=== PATIENT | male | born 1970 | race Caucasian/White ===

== ENCOUNTER 2018-07-07 06:25 | Emergency (ER) | payer SELFPAY ==
[2018-07-07 06:31] VITALS: BP 181/114
--- NOTE | 2018-07-07 07:17 | ER Document Report ---
ED General - General Chief Complaint: Ear Pain Stated Complaint: EAR INFECTION,COUGH,BODY PAIN Time Seen by Provider: 07/07/18 06:50 TRAVEL OUTSIDE OF THE [place] IN LAST 30 DAYS: No - HPI Notes: Patient is a 47-year-old male that presents to the emergency department for chief complaint of left ear pain. Patient reports sinus congestion with cough for the last 4 days. He states he has had progressive increased pain in his left ear. He describes it as a pressure and fullness. He states today he felt like there was some fluid on his left ear. He denies any fevers or chills. He does report some associated nausea but denies any abdominal pain or diarrhea. He has not taken any rnko-nma-emuekug medication for his symptoms. Past Medical History: Hypertension Past Surgical History: Negative Social History: Daily tobacco, occasional alcohol, denies drug use Family History: Reviewed and noncontributory for presenting illness Allergies: Reviewed, see documented allergy list. REVIEW OF SYSTEMS: CONSTITUTIONAL : No fever No chills No diaphoresis No recent illness EENT: No vision changes congestion No sore throat Left ear pain CARDIOVASCULAR: No chest pain No palpitations RESPIRATORY: No shortness of breath cough No difficulty breathing GASTROINTESTINAL: No abdominal pain nausea No vomiting No diarrhea GENITOURINARY: No dysuria No hematuria No difficulty urinating MUSCULOSKELETAL: No back pain No leg pain No arm pain SKIN: No rashes No lesions LYMPHATIC: No swollen, enlarged glands. NEUROLOGICAL: No lightheadedness No headache No weakness No paresthesias PSYCHIATRIC: No anxiety No depression PHYSICAL EXAMINATION: Vital signs reviewed, nursing noted reviewed. GENERAL: Well-appearing, well-nourished and in no acute distress. HEAD: Atraumatic, normocephalic. EYES: Eyes appear normal, extraocular movements intact, sclera anicteric, conjunctiva are normal. ENT: Cerumen impaction with dry hard cerumen in left ear, TM obscured on left. Normal right external auditory canal, right middle ear effusion, normal- appearing right TM. Bilateral nasal mucosal edema, no sinus tenderness to percussion, nares patent, oropharynx clear without exudates. Moist mucous membranes. NECK: Normal range of motion, supple without lymphadenopathy LUNGS: Breath sounds clear to auscultation bilaterally and equal. No wheezes rales or rhonchi. HEART: Regular rate and rhythm without murmurs ABDOMEN: Soft, nontender, normoactive bowel sounds. No rebound, guarding, or rigidity. No masses appreciated. EXTREMITIES: Nontender, good range of motion, no pitting or edema. NEUROLOGICAL: No focal neurological deficits. Moves all extremities spontaneously Motor and sensory grossly intact on exam. PSYCH: Normal mood, normal affect. SKIN: Warm, Dry, normal turgor, no rashes or lesions noted on exposed skin - Related Data Allergies/Adverse Reactions: No Known Allergies Allergy (Verified 07/10/15 12:03) Past Medical History - Social History Smoking Status: Unknown if Ever Smoked Family History: Reviewed & Not Pertinent Patient has suicidal ideation: No Patient has homicidal ideation: No - Past Medical History Cardiac Medical History: Reports: Hx Hypercholesterolemia, Hx Hypertension Neurological Medical History: Denies: Hx Seizures Renal/ Medical History: Reports: Hx Renal Insufficiency. Denies: Hx Peritoneal Dialysis GI Medical History: Reports: Hx Gastroesophageal Reflux Disease Past Surgical History: Reports: Hx Abdominal Surgery - hernia, Hx Orthopedic Surgery - lumbar - Immunizations Hx Diphtheria, Pertussis, Tetanus Vaccination: No Physical Exam - Vital signs Vitals: Temp Pulse Resp BP Pulse Ox 97.8 F 101 H 18 181/114 H 99 07/07/18 06:30 07/07/18 06:30 07/07/18 06:30 07/07/18 06:30 07/07/18 06:30 Course - Re-evaluation Re-evalutation: 07/07/18 07:17 Vitals reviewed. Nursing notes reviewed. Patient is well-appearing and nontoxic. He does have significantly elevated blood pressure and has been noncompliant with home medications. I did corporate counsel him on following up with primary care to recheck his blood pressure and likely get started back on blood pressure medications. He is asymptomatic from his hypertension currently and further workup is not indicated. Patient was advised to avoid any [id number] decongestants which may elevate his blood pressure. His right ear has hard cerumen and is tender on exam, he was advised to begin using Debrox to soften the cerumen and was referred to ENT for follow-up if he is unable to clear the impaction. Patient also likely has bilateral eustachian tube dysfunction because of his sinus congestion. He was started on Nasonex and Claritin for further symptomatic management. Patient did report nausea but has not had any vomiting or abdominal pain. He will be given Zofran for symptom medic management. His nausea is likely related to copious postnasal drip. He is in agreement with plan of care and follow-up instructions. He will return for new or worsening symptoms. He is stable at discharge. - Vital Signs Vital signs: Temp Pulse Resp BP Pulse Ox 97.8 F 101 H 18 181/114 H 99 07/07/18 06:30 07/07/18 06:30 07/07/18 06:30 07/07/18 06:30 07/07/18 06:30 Discharge - Discharge Clinical Impression: Left ear impacted cerumen, Sinus congestion Eustachian tube dysfunction Qualifiers: Laterality: bilateral Qualified Code(s): H69.83 - Other specified disorders of Eustachian tube, bilateral Condition: Stable Disposition: HOME, SELF-CARE Instructions: Family Physicians / Practices, Upper Respiratory Illness ([facility]) Additional Instructions: Please return to the emergency department if you have any worsening, or concern of your symptoms. Please return to the emergency department if you develop chest pain, difficulty breathing, severe abdominal pain, or ongoing vomiting. Please follow-up with your primary care physician in 2-3 days and any other recommended physicians. If prescribed, take all medications as directed. If you have any questions or concerns do not hesitate to return the emergency department for evaluation. Use Debrox [id number] as directed on the label in your left ear for earwax softening Prescriptions: Loratadine [Claritin 10 mg Tablet] 10 mg PO DAILY #30 tablet Mometasone Furoate [Nasonex] 1 spray NS Q12 #1 spray.pump Ondansetron HCl [Zofran 4 mg Tablet] 1 tab PO Q4H PRN #10 tablet PRN Reason: Forms: Elevated Blood Pressure Referrals: SHAHNAZ AYALA MD [ACTIVE STAFF] - Follow up in 1 week [facility] [Provider Group] - Follow up as needed
== END 2018-07-07 07:25 | disposition home or self-care (01) ==
LOC: ER 06:25
DX: H69.83 Other specified disorders of Eustachian tube, bilateral (principal); H61.22 Impacted cerumen, left ear; R09.81 Nasal congestion; E78.00 Pure hypercholesterolemia, unspecified; I10 Essential (primary) hypertension
CPT/HCPCS: 99282

== ENCOUNTER 2018-08-09 08:56 | Observation (INO) | payer SELFPAY ==
[2018-08-09] MEDS ORDERED: ONDANSETRON HCL INJ/PF 4 MG/2 ML SDV IV ONE (09:17)
[2018-08-09] MEDS ORDERED: NORMAL SALINE 1000 ML 1,000 ML IV ONE (09:19)
--- NOTE | 2018-08-09 09:27 | RADIOLOGY REPORT (SQ) ---
EXAM DESCRIPTION: CHEST SINGLE VIEW COMPLETED DATE/TIME: 08/09/2018 9:15 am REASON FOR STUDY: stroke alert numbness COMPARISON: None. EXAM PARAMETERS: NUMBER OF VIEWS: One view. TECHNIQUE: Single frontal radiographic view of the chest acquired. RADIATION DOSE: NA LIMITATIONS: None. FINDINGS: LUNGS AND PLEURA: No opacities, masses or pneumothorax. No pleural effusion. MEDIASTINUM AND HILAR STRUCTURES: No masses. Contour normal. HEART AND VASCULAR STRUCTURES: Heart normal in size. Normal vasculature. BONES: No acute findings. HARDWARE: None in the chest. OTHER: No other significant finding. IMPRESSION: NO ACUTE RADIOGRAPHIC FINDING IN THE CHEST. TECHNICAL DOCUMENTATION: JOB ID: [id number] [employer]- All Rights Reserved Reading location - IP/workstation name: [email or web address]
--- NOTE | 2018-08-09 09:27 | RADIOLOGY REPORT (SQ) ---
EXAM DESCRIPTION: CT HEAD WITHOUT COMPLETED DATE/TIME: 08/09/2018 9:14 am REASON FOR STUDY: stroke alert numbness COMPARISON: None. TECHNIQUE: Axial images acquired through the brain without intravenous contrast. Images reviewed wi th bone, brain and subdural windows. Additional sagittal and coronal reconstructions were generated. Images stored on PACS. All CT scanners at this facility use dose modulation, iterative reconstruction, and/or weight based d osing when appropriate to reduce radiation dose to as low as reasonably achievable (ALARA). [facility]: Dose Right [facility]: CareDose [facility]: Dose Right [facility]: Teradose 4D [facility]: Smart Technologies RADIATION DOSE: CT Rad equipment meets quality standard of care and radiation dose reduction techniq ues were employed. CTDIvol: 53.2 mGy. DLP: 991 mGy-cm. mGy. LIMITATIONS: None. FINDINGS: VENTRICLES: Normal size and contour. CEREBRUM: No masses. No hemorrhage. No midline shift. No evidence for acute infarction. Normal gra y/white matter differentiation. No areas of low density in the white matter. CEREBELLUM: No masses. No hemorrhage. No alteration of density. No evidence for acute infarction. EXTRAAXIAL SPACES: No fluid collections. No masses. ORBITS AND GLOBE: No intra- or extraconal masses. Normal contour of globe without masses. CALVARIUM: No fracture. PARANASAL SINUSES: No fluid levels. SOFT TISSUES: No mass or hematoma. OTHER: No other significant finding. IMPRESSION: NORMAL BRAIN CT WITHOUT CONTRAST. EVIDENCE OF ACUTE STROKE: NO. COMMENT: Pertinent positive or negative findings of the imaging study reported as a CRITICAL EXAM t o Dr Starr at09:20 on 08/09/2018. Category of Critical Exam: Stroke alert. Quality ID # [id number]: Final reports with documentation of one or more dose reduction techniques (e.g., Au tomated exposure control, adjustment of the mA and/or kV according to patient size, use of iterative reconstruction technique) TECHNICAL DOCUMENTATION: JOB ID: [id number] [employer]- All Rights Reserved Reading location - IP/workstation name: [email or web address]
[2018-08-09 09:49] LABS: INTERNATIONAL RATION (INR) 0.87; PARTIAL THROMBOPLASTIN TIME 28.7 SEC (23.5-35.8); PROTHROMBIN TIME 12.3 SEC (11.4-15.4)
[2018-08-09 09:50] LABS: ABSOLUTE LYMPHOCYTES (AUTO) 2.5 10^3/uL (0.5-4.7); ABSOLUTE MONOCYTES (AUTO) 0.8 10^3/uL (0.1-1.4); ABSOLUTE NEUT (AUTO) 7.1 10^3/uL (1.7-8.2); BASOPHILS % (AUTO) 0.4 % (0-2); EOSINOPHILS % (AUTO) 0.2 % (0-6); HEMATOCRIT 44.6 % (37.9-51.0); HEMOGLOBIN 15.6 g/dL (13.5-17.0); LYMPHOCYTES % (AUTO) 23.8 % (13-45); MEAN CORPUSCULAR HEMOGLOBIN 33.4 pg (27.0-33.4); MEAN CORPUSCULAR HGB CONC 34.9 g/dL (32.0-36.0); MEAN CORPUSCULAR VOLUME 96 fl (80-97); MONOCYTES % (AUTO) 7.4 % (3-13); PLATELET COUNT 288 10^3/uL (150-450); RED BLOOD COUNT 4.66 10^6/uL (4.35-5.55); RED CELL DISTRIBUTION WIDTH 13.8 % (11.5-14.0); SEGMENTED NEUTROPHILS % (AUTO) 68.2 % (42-78); TOTAL CELLS COUNTED % (AUTO) 100 %; WHITE BLOOD COUNT 10.4 10^3/uL (4.0-10.5)
[2018-08-09 10:02] LABS: ALANINE AMINOTRANSFERASE 19 U/L (21-72); ALKALINE PHOSPHATASE 119 U/L (38-126); ANION GAP 18 (5-19); ASPARTATE AMINO TRANSFERASE 43 U/L (17-59); BILIRUBIN,DIRECT 0.4 mg/dL (0.0-0.4); BILIRUBIN,TOTAL 1.4 mg/dL (0.2-1.3); BLOOD UREA NITROGEN 15 mg/dL (7-20); CALCIUM 9.5 mg/dL (8.4-10.2); CARBON DIOXIDE 37 mmol/L (22-30); CHLORIDE 86 mmol/L (98-107); CREATINE KINASE 462 U/L (55-170); GLUCOSE 131 mg/dL (75-110); SODIUM 141.3 mmol/L (137-145); TOTAL PROTEIN 8.5 g/dL (6.3-8.2)
[2018-08-09 10:05] LABS: A TYPE INFLUENZA AG NEGATIVE (NEGATIVE); B INFLUENZA AG NEGATIVE (NEGATIVE)
[2018-08-09 10:12] LABS: POTASSIUM 2.8 mmol/L (3.6-5.0)
[2018-08-09 10:13] LABS: CREATINE KINASE MB 1.06 ng/mL (<4.55)
[2018-08-09 10:14] LABS: TROPONIN I 0.038 ng/mL
[2018-08-09] MEDS ORDERED: POTASSI CL 40 MEQ/NS 1L 1,000 ML IV ONE (10:26)
[2018-08-09] MEDS ORDERED: MAGNESIUM SULFATE PF/INJ 40 MEQ/10 ML SDV IV ONE (10:29)
--- NOTE | 2018-08-09 11:20 | ER Document Report ---
ED General - General Chief Complaint: Numbness Stated Complaint: NAUSEA/VOMITING/ARM AND HAND TINGLING Time Seen by Provider: 08/09/18 09:17 TRAVEL OUTSIDE OF THE [place] IN LAST 30 DAYS: No - HPI Notes: Patient presents emergency department for evaluation. He presented because of tingling and weakness in his bilateral hands and arms. He states this started intermittently over the last 36 hours but became worse and constant today. He states he has had nausea and vomiting over the last week. He has had some low- grade fevers and malaise as well. He has had a minimal cough. He denies any diarrhea. No abnormal travel, recent antibiotics. No recent head injuries. He states that he has had some intermittent blurred vision that seems to be associated with the paresthesias in his hands. Of note he does not follow with a family doctor. - Related Data Allergies/Adverse Reactions: No Known Allergies Allergy (Verified 08/09/18 09:35) Past Medical History - General Information source: Patient - Social History Smoking Status: Current Every Day Smoker Frequency of alcohol use: Occasional Family History: Reviewed & Not Pertinent Patient has suicidal ideation: No Patient has homicidal ideation: No - Past Medical History Cardiac Medical History: Reports: Hx Hypercholesterolemia, Hx Hypertension Neurological Medical History: Denies: Hx Seizures Renal/ Medical History: Reports: Hx Renal Insufficiency. Denies: Hx Peritoneal Dialysis GI Medical History: Reports: Hx Gastroesophageal Reflux Disease Past Surgical History: Reports: Hx Abdominal Surgery - hernia, Hx Orthopedic Surgery - lumbar - Immunizations Hx Diphtheria, Pertussis, Tetanus Vaccination: No Review of Systems - Review of Systems Constitutional: Malaise, Weakness EENT: No symptoms reported Cardiovascular: No symptoms reported Respiratory: Cough Gastrointestinal: Nausea, Vomiting Musculoskeletal: No symptoms reported Skin: No symptoms reported Neurological/Psychological: See HPI, Weakness Physical Exam - Vital signs Vitals: Pulse Resp BP Pulse Ox 109 H 20 132/94 H 95 08/09/18 09:03 08/09/18 09:03 08/09/18 09:03 08/09/18 09:03 Interpretation: Hypertensive, Tachycardic - Notes Notes: Very anxious in appearance, cooperative examiner, mild distress. Head is normocephalic and atraumatic. Pupils are equal, round, reactive to light. Oral mucosa is moist. Heart is regular rate and rhythm, lungs are clear to auscultation bilaterally. Abdomen soft, nontender, normoactive bowel sounds. Patient is awake, alert, oriented x3. Cranial nerves II through XII are grossly intact without focal neurological deficits. Strength is plus 5 out of 5 bilateral upper and lower extremities. Sensation intact, reflexes symmetrical. Intact finger nose finger, rapid alternating movements, heel to patel. Patient with very fine tremor that appears to be Course - Re-evaluation Re-evalutation: 08/09/18 11:18 Patient presents emergency department for evaluation. He initially came as a stroke alert. His findings are more consistent with hyperventilation and electrolyte abnormalities. Laboratory evaluations did indeed reveal hypoma gnesemia, hypokalemia. He continued to be nauseated despite medications. Electrolytes replaced via IV. He was maintained on the monitor. We will admit the patient for further care. - Vital Signs Vital signs: Temp Pulse Resp BP Pulse Ox 98.8 F 109 H 21 H 132/94 H 95 08/09/18 09:23 08/09/18 09:03 08/09/18 09:23 08/09/18 09:23 08/09/18 09:23 - Laboratory Result Diagrams: 08/09/18 09:25 08/09/18 09:25 Laboratory results interpreted by me: 08/09/18 08/09/18 09:16 09:25 Potassium 2.8 L* Chloride 86 L Carbon Dioxide 37 H Glucose 131 H POC Glucose 139 H Magnesium 1.3 L Total Bilirubin 1.4 H ALT 19 L Creatine Kinase 462 H Total Protein 8.5 H - Diagnostic Test Radiology reviewed: Reports reviewed - CT head negative. Chest x-ray negative. - EKG Interpretation by Me Additional EKG results interpreted by me: 08/09/18 11:19 Sinus tachycardia with a rate of 108 bpm. Normal axis and intervals. No acute ST changes concerning for ischemia or infarction. Discharge - Discharge Clinical Impression: Hypokalemia, Hypomagnesemia, Paresthesias, Nausea and vomiting Condition: Stable Disposition: ADMITTED OBSERVATION Admitting Provider: Hospitalist - [facility] Admitted: Telemetry
[2018-08-09] MEDS: MAGNESIUM SULFATE/D5W 1 GM/100 ML RTUPB IV SCH ×2 (11:36→12:46)
[2018-08-09] MEDS ORDERED: ACETAMINOPHEN 325 MG TABLET PO PRN (12:14)
[2018-08-09] MEDS ORDERED: ONDANSETRON HCL INJ/PF 4 MG/2 ML SDV IV PRN (12:14)
[2018-08-09] MEDS ORDERED: ENOXAPARIN SODIUM INJ 40 MG/0.4 ML DISP.SYRIN SUBCUT ONE (12:45)
--- NOTE | 2018-08-09 12:47 | PDOC H&P ---
History of Present Illness Admission Date/PCP: 08/09/18 11:28 History of Present Illness: BONI LINTON JR is a 47 year old male patient with past medical history of hypertension, hyperlipidemia, psoriatic arthritis and tobacco dependence presents with chief complaints of bilateral tingling sensation and right-sided weakness. Patient also endorses nausea vomiting. This morning also he feels as if he is going to pass out. He denies chills, fever, palpitation or diaphoresis. He endorses dizziness but no headache, double vision or any seizure activity. He CT scan of the head is negative for acute intracranial process. His blood work shows marked hypokalemia with potassium of 2.6. Past Medical History Cardiac Medical History: Reports: Hyperlipidema, Hypertension Neurological Medical History: Denies: Seizures GI Medical History: Reports: Gastroesophageal Reflux Disease Past Surgical History Past Surgical History: Reports: Orthopedic Surgery - lumbar Social History Smoking Status: Current Every Day Smoker Frequency of Alcohol Use: None Hx Recreational Drug Use: Yes Drugs: Marijuana - Advance Directive Resuscitation Status: Full Code Family History Family History: Reviewed & Not Pertinent, CVA, Hypertension Parental Family History Reviewed: Yes Children Family History Reviewed: Yes Sibling(s) Family History Reviewed.: Yes Medication/Allergy Allergies/Adverse Reactions: No Known Allergies Allergy (Verified 08/09/18 09:35) Review of Systems Constitutional: PRESENT: as per HPI Eyes: PRESENT: as per HPI Ears: PRESENT: as per HPI Breasts: PRESENT: as per HPI Cardiovascular: PRESENT: as per HPI Respiratory: PRESENT: as per HPI Gastrointestinal: PRESENT: as per HPI Psychiatric: PRESENT: as per HPI Physical Exam Vital Signs: Temp Pulse Resp BP Pulse Ox 98.8 F 109 H 21 H 132/94 H 95 08/09/18 09:23 08/09/18 09:03 08/09/18 09:23 08/09/18 09:23 08/09/18 09:23 Intake & Output 08/08/18 08/09/18 08/10/18 06:59 06:59 06:59 Intake Total 1000 Balance 1000 Weight 89.2 kg General appearance: PRESENT: no acute distress Head exam: PRESENT: atraumatic, normocephalic Eye exam: PRESENT: conjunctiva pink Mouth exam: PRESENT: moist Neck exam: ABSENT: carotid bruit, JVD, lymphadenopathy, thyromegaly Respiratory exam: PRESENT: clear to auscultation rocío. ABSENT: rales, rhonchi, wheezes Cardiovascular exam: PRESENT: RRR. ABSENT: diastolic murmur, rubs, systolic murmur GI/Abdominal exam: PRESENT: normal bowel sounds, soft. ABSENT: distended, guarding, mass, organolmegaly, rebound, tenderness Neurological exam: PRESENT: alert, awake, oriented to time, oriented to situation Results Laboratory Results: 08/09/18 09:25 08/09/18 09:25 08/09/18 08/09/18 09:25 09:25 WBC 10.4 RBC 4.66 Hgb 15.6 Hct 44.6 MCV 96 MCH 33.4 MCHC 34.9 RDW 13.8 Plt Count 288 Seg Neutrophils % 68.2 Lymphocytes % 23.8 Monocytes % 7.4 Eosinophils % 0.2 Basophils % 0.4 Absolute Neutrophils 7.1 Absolute Lymphocytes 2.5 Absolute Monocytes 0.8 Absolute Eosinophils 0.0 Absolute Basophils 0.0 Sodium 141.3 Potassium 2.8 L* Chloride 86 L Carbon Dioxide 37 H Anion Gap 18 BUN 15 Creatinine 1.13 Est GFR ( Amer) > 60 Est GFR (Non-Af Amer) > 60 Glucose 131 H Calcium 9.5 Magnesium 1.3 L Total Bilirubin 1.4 H AST 43 ALT 19 L Alkaline Phosphatase 119 Total Protein 8.5 H Albumin 5.0 08/09/18 08/09/18 09:25 09:25 Creatine Kinase 462 H CK-MB (CK-2) 1.06 Troponin I 0.038 Impressions: Chest X-Ray 08/09/18 09:03 IMPRESSION: NO ACUTE RADIOGRAPHIC FINDING IN THE CHEST. Head CT 08/09/18 09:03 IMPRESSION: NORMAL BRAIN CT WITHOUT CONTRAST. EVIDENCE OF ACUTE STROKE: NO. Assessment & Plan - Diagnosis (1) TIA (transient ischemic attack) Is this a current diagnosis for this admission?: Yes Plan: Since patient has risk factors for CVA will admit him for observation. Bilateral carotid Doppler and MRI in the morning (2) Hypokalemia Is this a current diagnosis for this admission?: Yes Plan: We will replete and check his BMP in a.m. (3) Hypertension Qualifiers: Hypertension type: essential hypertension Qualified Code(s): I10 - Essential (primary) hypertension Is this a current diagnosis for this admission?: Yes Plan: Patient reports this is not taking any medication for his blood pressure due to financial issues. Patient has been started on lisinopril and Norvasc. (4) Hyperlipidemia Qualifiers: Hyperlipidemia type: unspecified Qualified Code(s): E78.5 - Hyperlipidemia, unspecified Is this a current diagnosis for this admission?: Yes Plan: Started on Lipitor 20 mg p.o. nightly. (5) Tobacco dependence Is this a current diagnosis for this admission?: Yes Plan: Patient counseled and encouraged to quit smoking and he voiced agreement.
--- NOTE | 2018-08-09 15:15 | RADIOLOGY REPORT (SQ) ---
EXAM DESCRIPTION: CAROTID DOPPLER COMPLETED DATE/TIME: 08/09/2018 2:49 pm REASON FOR STUDY: Rule out CVA COMPARISON: None. TECHNIQUE: Grayscale ultrasound, Doppler velocity and spectra, and color Doppler images acquired of the extra-cranial carotid and vertebral arteries. Images stored on PACS. LIMITATIONS: None. FINDINGS: RIGHT CAROTID CCA Velocities: Within normal limits. ICA Velocities Peak systolic 0.47 m/s. End diastolic 0.24 m/s. Proximal ICA/CCA peak systolic ratio 1.2. Mild plaque in the bulb and proximal ICA. LEFT CAROTID CCA Velocities: Within normal limits. ICA Velocities Peak systolic 1.1 m/s. End diastolic 0.40 m/s. Proximal ICA/CCA peak systolic ratio 0.9. Mild plaque in the bulb and proximal ICA. VERTEBRAL ARTERIES: Antegrade flow. Normal waveforms. SUBCLAVIAN ARTERIES: Not imaged. OTHER: No other significant finding. IMPRESSION: NO HEMODYNAMICALLY SIGNIFICANT STENOSIS. COMMENT: Quality ID #[id number]: Velocity criteria are extrapolated from the diameter data as defined by t he Society of Radiologists in Ultrasound Consensus Conference. Radiology 2003: 229; 340-346. TECHNICAL DOCUMENTATION: JOB ID: [id number] [employer]- All Rights Reserved Reading location - IP/workstation name: [email or web address]
--- NOTE | 2018-08-09 15:52 | EKG REPORT ---
SEVERITY:- ABNORMAL ECG - SINUS TACHYCARDIA WITH PVC CONSIDER LEFT VENTRICULAR HYPERTROPHY BORDERLINE T ABNORMALITIES, INFERIOR LEADS BORDERLINE PROLONGED QT INTERVAL : Confirmed by: Fred Whalen MD 09-Aug-2018 15:51:42
[2018-08-09] MEDS: OXYCODONE-ACETAMINOPHEN 5-325 MG TABLET PO PRN ×2 (16:52→21:12)
--- NOTE | 2018-08-09 18:50 | RADIOLOGY REPORT (SQ) ---
EXAM DESCRIPTION: MRI HEAD WITHOUT COMPLETED DATE/TIME: 08/09/2018 5:32 pm REASON FOR STUDY: TIA/CVA COMPARISON: None. TECHNIQUE: Multiplanar imaging includes non-contrasted T1, T2, FLAIR, and diffusion with ADC map seq uences. Images stored on PACS. LIMITATIONS: None. FINDINGS: ANATOMY: No anomalies. Normal vascular flow voids. Pituitary fossa normal. CSF SPACES: Normal in size and contour. No hemorrhage. CEREBRUM: Sulci and gyri normal in size and contour. Normal white matter signal on FLAIR imaging. No evidence of hemorrhage, mass, or extraaxial fluid collection. POSTERIOR FOSSA: No signal alteration. No hemorrhage. No edema, masses or mass effect. Internal viola tory canals, cerebello-pontine angles, mastoids normal. DIFFUSION IMAGING: Negative for acute or sub-acute infarction. ORBITS: No masses. Globes normal. PARANASAL SINUSES: No fluid levels. Small left maxillary sinus mucous retention cyst. . OTHER: No other significant finding. IMPRESSION: Negative for acute or sub-acute infarction. Age-appropriate exam. EVIDENCE OF ACUTE STROKE: NO. TECHNICAL DOCUMENTATION: JOB ID: [id number] [employer]- All Rights Reserved Reading location - IP/workstation name: [email or web address]
[2018-08-09] MEDS: FAMOTIDINE 20 MG TABLET PO SCH (21:12)
[2018-08-09] MEDS ORDERED: ATORVASTATIN CALCIUM 20 MG TABLET PO SCH (22:00)
[2018-08-09] MEDS ORDERED: LABETALOL HCL INJ 20 MG/4 ML DISP.SYRIN IV PRN (22:18)
[2018-08-10] MEDS ORDERED: LABETALOL HCL INJ 20 MG/4 ML DISP.SYRIN IV ONE (00:02)
[2018-08-10] MEDS: OXYCODONE-ACETAMINOPHEN 5-325 MG TABLET PO PRN ×3 (03:13→12:37)
[2018-08-10 07:12] LABS: ABSOLUTE EOSINOPHILS # (AUTO) 0.1 10^3/uL (0.0-0.6); ABSOLUTE LYMPHOCYTES (AUTO) 2.7 10^3/uL (0.5-4.7); ABSOLUTE MONOCYTES (AUTO) 0.7 10^3/uL (0.1-1.4); ABSOLUTE NEUT (AUTO) 4.1 10^3/uL (1.7-8.2); BASOPHILS % (AUTO) 0.4 % (0-2); EOSINOPHILS % (AUTO) 1.6 % (0-6); HEMATOCRIT 34.1 % (37.9-51.0); LYMPHOCYTES % (AUTO) 35.3 % (13-45); MEAN CORPUSCULAR HEMOGLOBIN 33.6 pg (27.0-33.4); MEAN CORPUSCULAR HGB CONC 34.8 g/dL (32.0-36.0); MEAN CORPUSCULAR VOLUME 97 fl (80-97); MONOCYTES % (AUTO) 8.6 % (3-13); PLATELET COUNT 190 10^3/uL (150-450); RED BLOOD COUNT 3.53 10^6/uL (4.35-5.55); RED CELL DISTRIBUTION WIDTH 13.7 % (11.5-14.0); SEGMENTED NEUTROPHILS % (AUTO) 54.1 % (42-78); TOTAL CELLS COUNTED % (AUTO) 100 %; WHITE BLOOD COUNT 7.6 10^3/uL (4.0-10.5)
[2018-08-10 07:24] LABS: HEMOGLOBIN 11.9 g/dL (13.5-17.0)
[2018-08-10 07:37] LABS: ANION GAP 10 (5-19); BLOOD UREA NITROGEN 14 mg/dL (7-20); CALCIUM 8.8 mg/dL (8.4-10.2); CARBON DIOXIDE 33 mmol/L (22-30); CHLORIDE 96 mmol/L (98-107); CHOLESTEROL 152.31 mg/dL (0-200); GLUCOSE 104 mg/dL (75-110); POTASSIUM 3.3 mmol/L (3.6-5.0); SODIUM 139.1 mmol/L (137-145); TRIGLYCERIDES 135 mg/dL (<150)
[2018-08-10 07:48] LABS: DIRECT LDL 95 mg/dL (<100)
[2018-08-10] MEDS: FAMOTIDINE 20 MG TABLET PO SCH (09:13)
[2018-08-10] MEDS ORDERED: ENOXAPARIN SODIUM INJ 40 MG/0.4 ML DISP.SYRIN SUBCUT SCH (10:00)
[2018-08-10] MEDS ORDERED: LISINOPRIL 10 MG TABLET PO SCH (10:00)
--- NOTE | 2018-08-10 12:44 | PDOC DISCHARGE SUMMARY ---
General - Admit/Disc Date/PCP Admission Date/Primary Care Provider: 08/09/18 11:28 Discharge Date: 08/10/18 - Discharge Diagnosis (1) TIA (transient ischemic attack) Is this a current diagnosis for this admission?: Yes (2) Hypokalemia Is this a current diagnosis for this admission?: Yes (3) Hypertension Is this a current diagnosis for this admission?: Yes (4) Hyperlipidemia Is this a current diagnosis for this admission?: Yes (5) Tobacco dependence Is this a current diagnosis for this admission?: Yes - Additional Information Resuscitation Status: Full Code Home Medications: No Home Medications 08/09/18 History of Present Illness History of Present Illness: BONI LINTON JR is a 47 year old male patient with past medical history of hypertension, hyperlipidemia, psoriatic arthritis and tobacco dependence presents with chief complaints of bilateral tingling sensation and right-sided weakness. Patient also endorses nausea vomiting. This morning also he feels as if he is going to pass out. He denies chills, fever, palpitation or diaphoresis. He endorses dizziness but no headache, double vision or any seizure activity. He CT scan of the head is negative for acute intracranial process. His blood work shows marked hypokalemia with potassium of 2.6. Hospital Course Hospital Course: This is 47 years old male patient with past medical history of hypertension, hyperlipidemia, tobacco dependence and psoriatic arthritis presents with chief complaint of bilateral upper and lower extremity tingling sensation and weakness. He also complains of nausea and vomiting. With impression of rule out acute ischemic stroke patient undergone CT head, MRI of the brain and carotid Doppler and all of the tests turn negative. Patient remained symptom-free. His blood pressure is uncontrolled. I will discharge him home with metoprolol, lisinopril and Norvasc. Patient counseled and encouraged to quit smoking and he voices agreement. Physical Exam Vital Signs: Temp Pulse Resp BP Pulse Ox 98.0 F 71 16 143/84 H 99 08/10/18 11:27 08/10/18 11:27 08/10/18 11:27 08/10/18 11:27 08/10/18 11:27 Intake & Output 08/09/18 08/10/18 08/11/18 06:59 06:59 06:59 Intake Total 2770 Balance 2770 Weight 92.2 kg Results Laboratory Results: 08/10/18 06:22 08/10/18 06:22 08/10/18 08/10/18 06:22 06:22 WBC 7.6 RBC 3.53 L Hgb 11.9 L D Hct 34.1 L MCV 97 MCH 33.6 H MCHC 34.8 RDW 13.7 Plt Count 190 Seg Neutrophils % 54.1 Lymphocytes % 35.3 Monocytes % 8.6 Eosinophils % 1.6 Basophils % 0.4 Absolute Neutrophils 4.1 Absolute Lymphocytes 2.7 Absolute Monocytes 0.7 Absolute Eosinophils 0.1 Absolute Basophils 0.0 Sodium 139.1 Potassium 3.3 L Chloride 96 L Carbon Dioxide 33 H Anion Gap 10 BUN 14 Creatinine 1.04 Est GFR ( Amer) > 60 Est GFR (Non-Af Amer) > 60 Glucose 104 Calcium 8.8 Triglycerides 135 Cholesterol 152.31 LDL Cholesterol Direct 95 VLDL Cholesterol 27.0 HDL Cholesterol 44 08/09/18 08/09/18 09:25 09:25 Creatine Kinase 462 H CK-MB (CK-2) 1.06 Troponin I 0.038 Impressions: Carotid Doppler Study 08/09/18 00:00 IMPRESSION: NO HEMODYNAMICALLY SIGNIFICANT STENOSIS. Head MRI 08/09/18 00:00 IMPRESSION: Negative for acute or sub-acute infarction. Age-appropriate exam. EVIDENCE OF ACUTE STROKE: NO. Chest X-Ray 08/09/18 09:03 IMPRESSION: NO ACUTE RADIOGRAPHIC FINDING IN THE CHEST. Head CT 08/09/18 09:03 IMPRESSION: NORMAL BRAIN CT WITHOUT CONTRAST. EVIDENCE OF ACUTE STROKE: NO. Qualifiers - * PATIENT BEING DISCHARGED WITH ANY OF THE FOLLOWING DIAGNOSIS: No
[2018-08-10] MEDS ORDERED: POTASSIUM CHLORIDE 10 MEQ CAPSULE.ER PO ONE (13:00)
[2018-08-10] MEDS ORDERED: METOPROLOL TARTRATE 50 MG TABLET PO ONE (13:00)
[2018-08-10] MEDS ORDERED: AMLODIPINE BESYLATE 10 MG TABLET PO ONE (13:00)
[2018-08-10] MEDS ORDERED: PROCHLORPERAZINE MALEATE 10 MG TABLET PO ONE (13:30)
[2018-08-10 14:39] VITALS: BP 142/72
== END 2018-08-10 15:12 | disposition home or self-care (01) ==
LOC: ER 08:56 → EH 11:28 → 3S 15:50
PROVIDERS: ADMIT Internal Medicine; ATTEND Internal Medicine
DX: G45.9 Transient cerebral ischemic attack, unspecified (principal); E87.6 Hypokalemia; I10 Essential (primary) hypertension; E78.5 Hyperlipidemia, unspecified; F17.200 Nicotine dependence, unspecified, uncomplicated; L40.50 Arthropathic psoriasis, unspecified; R11.2 Nausea with vomiting, unspecified; R50.9 Fever, unspecified; R05 Cough; R53.81 Other malaise; R00.0 Tachycardia, unspecified; E83.42 Hypomagnesemia; Z82.3 Family history of stroke; Z23 Encounter for immunization
CPT/HCPCS: 93005; 99285; 96372; 96361; 96375; 96365; 96366; 36415 ×2; 82553; 82962; 82550; 83735; 85025 ×2; 85610; 85730; 80048; 80053; 84484; 83036; 80061; 87804; 93880; 70551; 71045; 70450; 90686; 93010; J3490 ×3; J1650 ×2; J3475; S0183; J2405; J7030; J3480

== ENCOUNTER 2019-01-26 14:28 | Emergency (ER) | payer SELFPAY ==
--- NOTE | 2019-01-26 15:17 | ER Document Report ---
ED Medical Screen (RME) - General Chief Complaint: Dizziness Stated Complaint: WEAKNESS Time Seen by Provider: 01/26/19 15:06 Notes: HPI: Is a 48-year-old male here for a plethora of complaints to include feeling shaky and tremulous all over, dizzy, fatigue, nausea, hiccups, cough, saha, intermittent bilateral hand tingling for the last 6 days. He states he usually drinks alcohol often and has not had any EtOH in 6 days. He states the tremors have become worse. He denies any history of this before. He denies any history of DTs, alcohol withdrawal seizures, or alcohol detox in the past. He states that this happened one time before and he was in renal failure of unknown etiology. He is supposed to take lisinopril and 3 other blood pressure medications however he lost his job and has not filled these medications or been compliant secondary to monetary reasons. He states he aches all over as well. Denies any tick bites. No fall or trauma. No other changes in medication or diet. Denies any nintoxication or drug use. Denies any other complaints at this time. He has not sought care until now. ROS neg to include 10 systems, unless mentioned in the hpi. PE:>>>> PHYSICAL_EXAM: GENERAL_APPEARANCE: well_nourished, alert, cooperative, no_acute_distress, Moderate_obvious_discomfort. pleasant, obese middle aged white male, tremulous in his bilat upper and lower extremities. somewhat bizarre affect but pleasant., speaking in full sentences, in no sign of pain or resp distress, VITALS: reviewed, see vital signs table. HEAD: no_swelling\tenderness on the head. normocephalic. atraumatic. no santana signs. no raccoons eyes. EYES: PERRL, EOMI, conjunctiva_clear. NOSE: no_nasal_discharge. MOUTH: (-)decreased moisture. THROAT: no_tonsilar_inflammation, no_airway_obstruction. no_lymphadenopathy NECK: supple, no_neck_tenderness, full rom. full strength. BACK: no_back_tenderness. CHEST_WALL: no_chest_tenderness. no overlying skin changes LUNGS: no_wheezing, ctab (-)accessory muscle use, good air exchange bilateral. HEART: normal_rate, normal_rhythm, ABDOMEN: normal_BS, soft, no_abd_tenderness, (-)guarding, (-)rebound, no distension or peritoneal signs. no cva ttp EXTREMITIES: strength 5/5 in all_extremities, good pulses in all_extremities, no_swelling\tenderness in the extremities, no_edema. full rom. normal gait. good pulses. brisk cap refill. good hand senior technical analyst. NEURO: motor and sensation intact, SKIN: warm, dry, good_color, no_rash. MENTAL_STATUS: speech_clear, oriented_X_3, normal_affect, responds_appropriately to questions. MDM: I have ordered labs and initial work-up and patient will be transferred to the main ER for further work-up. I have greeted and performed a rapid initial assessment of this patient. A comprehensive ED assessment and evaluation of the patient, analysis of test results and completion of medical decision making process will be conducted by an additional ED providers. Documentation achieved through voice recording which my lead to some occasional accidental typographical errors. Extensive efforts have been made to proof read documentation to make sure these are the least as possible Temp Pulse Pulse Pulse Pulse Resp BP 01/26/19 16:44 98 100 92 01/26/19 15:23 160/123 H 01/26/19 15:22 01/26/19 14:36 97.4 F 117 H 20 153/138 H BP BP BP Pulse Ox 01/26/19 16:44 158/106 H 168/123 H 123/91 H 01/26/19 15:23 99 01/26/19 15:22 99 01/26/19 14:36 100 Category Date Time Status Continuous Cardiac Monitoring (ED) CONTINUOUS Care 01/26/19 15:15 Completed EKG Documentation STAT Care 01/26/19 15:15 Completed EKG Documentation STAT Care 01/26/19 15:16 Completed Orthostatic Vital Sign (ED) NOW Care 01/26/19 15:16 Completed CHEST 2 VIEWS [RAD] Stat Exams 01/26/19 15:15 Completed ALCOHOL [CHEM] Stat Lab 01/26/19 16:00 Completed CBC WITH DIFF [HEME] Stat Lab 01/26/19 16:00 Completed COMPREHENSIVE METABOLIC PANEL [CHEM] Stat Lab 01/26/19 16:00 Completed CREATINE KINASE MB [CHEM] Stat Lab 01/26/19 16:00 Completed CREATINE KINASE [CHEM] Stat Lab 01/26/19 16:00 Completed FREE T3 [CHEM] Stat Lab 01/26/19 16:00 Received LACTIC ACID SEPSIS [CHEM] Stat Lab 01/26/19 16:38 Completed LIPASE [CHEM] Stat Lab 01/26/19 16:00 Completed MAGNESIUM [CHEM] Stat Lab 01/26/19 16:00 Completed T4 [FREE T4 (FREE THYROXINE)] [CHEM] Stat Lab 01/26/19 16:00 Received THYROID STIMULATING HORMONE [CHEM] Stat Lab 01/26/19 16:00 Received TROPONIN I [CHEM] Stat Lab 01/26/19 16:00 Completed URINALYSIS [URIN] Stat Lab 01/26/19 15:15 Uncollected URINE DRUG SCREEN [CHEM] Stat Lab 01/26/19 15:15 Uncollected Lorazepam [Ativan Inj 2 mg/1 ml Vial] Med 01/26/19 16:22 Discontinued 1 mg IV NOW ONE EKG ER ONLY [ER] Stat Oth 01/26/19 Active TRAVEL OUTSIDE OF THE [place] IN LAST 30 DAYS: No - Related Data Allergies/Adverse Reactions: No Known Allergies Allergy (Verified 01/26/19 14:28) Past Medical History - Past Medical History Cardiac Medical History: Reports: Hx Hypercholesterolemia, Hx Hypertension Neurological Medical History: Denies: Hx Seizures Renal/ Medical History: Reports: Hx Renal Insufficiency. Denies: Hx Peritoneal Dialysis GI Medical History: Reports: Hx Gastroesophageal Reflux Disease Past Surgical History: Reports: Hx Abdominal Surgery - hernia, Hx Orthopedic Surgery - lumbar - Immunizations Hx Diphtheria, Pertussis, Tetanus Vaccination: No Physical Exam - Vital signs Vitals: Temp Pulse Resp BP Pulse Ox 97.4 F 117 H 20 153/138 H 100 01/26/19 14:36 01/26/19 14:36 01/26/19 14:36 01/26/19 14:36 01/26/19 14:36 Course - Vital Signs Vital signs: Temp Pulse Resp BP Pulse Ox 97.4 F 92 20 123/91 H 99 01/26/19 14:36 01/26/19 16:44 01/26/19 14:36 01/26/19 16:44 01/26/19 15:23 - Laboratory Result Diagrams: 01/26/19 16:00 01/26/19 16:00 Laboratory results interpreted by me: 01/26/19 01/26/19 01/26/19 16:00 16:00 16:00 RBC 3.75 L Hgb 12.7 L Hct 36.5 L MCH 33.9 H RDW 14.4 H Sodium 133.1 L Potassium 3.3 L Chloride 92 L BUN 24 H Creatinine 1.33 H Est GFR (Non-Af Amer) 57 L Glucose 120 H Calcium 10.4 H Magnesium 1.3 L
--- NOTE | 2019-01-26 16:16 | RADIOLOGY REPORT (SQ) ---
EXAM DESCRIPTION: CHEST 2 VIEWS COMPLETED DATE/TIME: 01/26/2019 4:04 pm REASON FOR STUDY: weakness COMPARISON: 08/09/2018. EXAM PARAMETERS: NUMBER OF VIEWS: two views TECHNIQUE: Digital Frontal and Lateral radiographic views of the chest acquired. RADIATION DOSE: NA LIMITATIONS: none FINDINGS: LUNGS AND PLEURA: No opacities, masses or pneumothorax. No pleural effusion. MEDIASTINUM AND HILAR STRUCTURES: No masses or contour abnormalities. HEART AND VASCULAR STRUCTURES: Heart normal size. No evidence for failure. BONES: No acute findings. HARDWARE: None in the chest. OTHER: No other significant finding. IMPRESSION: NO ACUTE RADIOGRAPHIC FINDING IN THE CHEST. TECHNICAL DOCUMENTATION: JOB ID: [id number] [employer]- All Rights Reserved Reading location - IP/workstation name: [email or web address]
[2019-01-26] MEDS ORDERED: LORAZEPAM INJ 2 MG/1 ML VIAL IV ONE (16:22)
--- NOTE | 2019-01-26 16:23 | ER Document Report ---
ED General - General Chief Complaint: Dizziness Stated Complaint: WEAKNESS Time Seen by Provider: 01/26/19 15:06 TRAVEL OUTSIDE OF THE [place] IN LAST 30 DAYS: No - HPI Notes: 40-year-old male presents with multiple complaints. Patient states beginning last Friday began to feel some occasional dizziness, sometimes related to position or standing up others not. On Friday he began to have nausea, vomited several times and began to have hiccups to cause some upper epigastric pain. Cramping, nonradiating. He overall just felt dizzy, weak and today developed some shaking tremor in his upper and lower extremities. He has not been eating or drinking very well. He is evasive about his alcohol use but ultimately admits that he drinks at least a sixpack a day, he stopped drinking on Friday when he began to feel dizzy. He denies any head injury, no headache, no unplanned weight loss. No new medications. Adamantly denies any illicit drug abuse. No history of any neurologic disease. No recent travel. No recent antibiotic use. No other modifying factors, no other associated symptoms, no other provocative or palliative factors. - Related Data Allergies/Adverse Reactions: No Known Allergies Allergy (Verified 01/26/19 14:28) Past Medical History - Social History Smoking Status: Current Every Day Smoker Frequency of alcohol use: Social Drug Abuse: Marijuana Family History: Reviewed & Not Pertinent, CVA, Hypertension Patient has suicidal ideation: No Patient has homicidal ideation: No - Past Medical History Cardiac Medical History: Reports: Hx Hypercholesterolemia, Hx Hypertension Neurological Medical History: Denies: Hx Seizures Renal/ Medical History: Reports: Hx Renal Insufficiency. Denies: Hx Peritoneal Dialysis GI Medical History: Reports: Hx Gastroesophageal Reflux Disease Past Surgical History: Reports: Hx Abdominal Surgery - hernia, Hx Orthopedic Surgery - lumbar - Immunizations Hx Diphtheria, Pertussis, Tetanus Vaccination: No Review of Systems - Review of Systems Notes: Review of systems as in the history of present illness, otherwise negative x 10 systems. Physical Exam - Vital signs Vitals: Pulse Resp BP Pulse Ox 98 14 171/101 H 98 01/26/19 14:30 01/26/19 14:30 01/26/19 14:30 01/26/19 14:30 - Notes Notes: General: Well developed, well nourished. HEENT: Normocephalic, atraumatic. PEERL. No conjunctival injection. Neck: Supple, no significant adenopathy. No meningismus. Chest: Clear bilaterally, good air entry. Abdomen: Soft, non-tender, nondistended. Back: Non-tender. Normal ROM Extremities: No cyanosis, clubbing or edema. Vascular: Symmetric peripheral pulses, normal capillary refill. Skin: No significant rash. No petechiae or purpura. Motor: Normal tone and power. Symmetric. Neurologic: Alert and oriented to person place and time. Cranial nerves II-12 are intact. Sensation intact and symmetric in the upper and lower extremities. No cerebellar findings including finger-nose testing. No clonus. Gait normal. Funduscopic exam shows crisp disc margins, no evidence of papilledema. Patient has diffuse shaking and trembling. No evidence of hyperreflexia, DTRs 1+ and symmetric in the upper and lower extremities. Tremor seems to kavitha slightly when he is asked to focus on certain activities Course - Re-evaluation Re-evalutation: 01/26/19 16:21 48-year-old male with the after mentioned symptoms, unclear etiology at this time. Broad differential diagnosis will be entertained include underlying endocrine, metabolic or infectious etiologies. Has a normal neurologic exam, no headache I think an intracranial structural ab normality is unlikely. Patient was evaluated by the [facility] provider prior to my evaluation. Studies / interventions have been ordered by this provider and may still be pending. Plan to follow labs and radiographic studies, will treat with Ativan and reassess. There is some suspicion this may be related to, in part, acute alcoho l withdrawal. 01/26/19 18:42 Labs reviewed. CBC grossly unremarkable. Chemistries unremarkable the exception of slightly depressed potassium, magnesium is depressed. Patient is given oral potassium repletion and IV magnesium. EKG is grossly unremarkable Chest x-ray unremarkable. Patient is responded exceptionally well to Ativan. Tremors ceased and he is resting comfortably with normal vital signs. Although not clear, I do suspect there may be some element of potential alcohol withdrawal. He has declined my offer to assist with treatment. Going to place him on a Librium taper, I have advised him to seek follow-up his primary care physician with next day or 2 for recheck. Otherwise believe safe for discharge home, follow-up as discussed. - Vital Signs Vital signs: Temp Pulse Resp BP Pulse Ox 97.4 F 92 32 H 147/101 H 98 01/26/19 14:36 01/26/19 16:44 01/26/19 17:01 01/26/19 17:01 01/26/19 17:01 - Laboratory Result Diagrams: 01/26/19 16:00 01/26/19 16:00 Laboratory results interpreted by me: 01/26/19 01/26/19 01/26/19 16:00 16:00 16:00 RBC 3.75 L Hgb 12.7 L Hct 36.5 L MCH 33.9 H RDW 14.4 H Sodium 133.1 L Potassium 3.3 L Chloride 92 L BUN 24 H Creatinine 1.33 H Est GFR (Non-Af Amer) 57 L Glucose 120 H Calcium 10.4 H Magnesium 1.3 L Urine Protein Urine Ketones 01/26/19 17:30 RBC Hgb Hct MCH RDW Sodium Potassium Chloride BUN Creatinine Est GFR (Non-Af Amer) Glucose Calcium Magnesium Urine Protein 30 H Urine Ketones TRACE H Discharge - Discharge Clinical Impression: Hypokalemia, Hypomagnesemia, Dizziness Condition: Stable Disposition: HOME, SELF-CARE Instructions: Dizziness ([facility]), Alcohol Withdrawl ([facility]) Prescriptions: Chlordiazepoxide HCl [Librium 25 mg Capsule] 25 mg PO Q12 4 Days #19 capsule
[2019-01-26 16:41] LABS: ABSOLUTE EOSINOPHILS # (AUTO) 0.1 10^3/uL (0.0-0.6); ABSOLUTE LYMPHOCYTES (AUTO) 2.7 10^3/uL (0.5-4.7); ABSOLUTE MONOCYTES (AUTO) 0.8 10^3/uL (0.1-1.4); ABSOLUTE NEUT (AUTO) 5.2 10^3/uL (1.7-8.2); BASOPHILS % (AUTO) 0.5 % (0-2); EOSINOPHILS % (AUTO) 1.2 % (0-6); HEMATOCRIT 36.5 % (37.9-51.0); HEMOGLOBIN 12.7 g/dL (13.5-17.0); LYMPHOCYTES % (AUTO) 30.7 % (13-45); MEAN CORPUSCULAR HEMOGLOBIN 33.9 pg (27.0-33.4); MEAN CORPUSCULAR HGB CONC 34.9 g/dL (32.0-36.0); MEAN CORPUSCULAR VOLUME 97 fl (80-97); MONOCYTES % (AUTO) 8.8 % (3-13); PLATELET COUNT 330 10^3/uL (150-450); RED BLOOD COUNT 3.75 10^6/uL (4.35-5.55); RED CELL DISTRIBUTION WIDTH 14.4 % (11.5-14.0); SEGMENTED NEUTROPHILS % (AUTO) 58.8 % (42-78); TOTAL CELLS COUNTED % (AUTO) 100 %; WHITE BLOOD COUNT 8.8 10^3/uL (4.0-10.5)
[2019-01-26 16:59] LABS: CREATINE KINASE 90 U/L (55-170)
[2019-01-26 17:00] LABS: ALBUMIN 4.4 g/dL (3.5-5.0); ALCOHOL < 10 mg/dL (NONE DETECTED); ALKALINE PHOSPHATASE 92 U/L (38-126); ANION GAP 13 (5-19); ASPARTATE AMINO TRANSFERASE 24 U/L (17-59); BILIRUBIN,DIRECT 0.4 mg/dL (0.0-0.4); BILIRUBIN,TOTAL 1.2 mg/dL (0.2-1.3); BLOOD UREA NITROGEN 24 mg/dL (7-20); CALCIUM 10.4 mg/dL (8.4-10.2); CARBON DIOXIDE 28 mmol/L (22-30); CHLORIDE 92 mmol/L (98-107); GLUCOSE 120 mg/dL (75-110); POTASSIUM 3.3 mmol/L (3.6-5.0); TOTAL PROTEIN 7.4 g/dL (6.3-8.2)
[2019-01-26 17:11] LABS: TROPONIN I 0.014 ng/mL
[2019-01-26 17:13] LABS: CREATINE KINASE MB < 0.22 ng/mL (<4.55)
[2019-01-26 17:17] LABS: FREE T3 4.39 pg/mL (2.77-5.27); FREE T4 (FREE THYROXINE) 1.39 ng/dL (0.78-2.19)
[2019-01-26 17:31] LABS: THYROID STIMULATING HORMONE 2.57 uIU/mL (0.47-4.68)
[2019-01-26] MEDS ORDERED: MAGNESIUM SULFATE PF/INJ 40 MEQ/10 ML SDV IV ONE (17:32)
[2019-01-26] MEDS ORDERED: POTASSIUM CHLORIDE 10 MEQ CAPSULE.ER PO ONE (17:32)
[2019-01-26 18:06] LABS: APPEARANCE,URINE CLEAR; BILIRUBIN,URINE NEGATIVE (NEGATIVE); COLOR,URINE YELLOW; GLUCOSE, URINE NEGATIVE (NEGATIVE); KETONES,URINE TRACE mg/dL (NEGATIVE); LEUKOCYTE ESTERASE,URINE NEGATIVE (NEGATIVE); NITRITE,URINE NEGATIVE (NEGATIVE); PROTEIN,URINE 30 mg/dL (NEGATIVE); URINE SPECIFIC GRAVITY 1.009; UROBILINOGEN,URINE NEGATIVE mg/dL (<2.0)
[2019-01-26 18:21] LABS: URINE AMPHETAMINES SCREEN NEGATIVE; URINE BARBITURATES SCREEN NEGATIVE; URINE BENZODIAZEPINES SCREEN NEGATIVE; URINE COCAINE SCREEN NEGATIVE; URINE MARIJUANA (THC) SCREEN UNCONFIRMED POSITIVE; URINE METHADONE SCREEN NEGATIVE; URINE PHENCYCLIDINE SCREEN NEGATIVE
[2019-01-26] MEDS: MAGNESIUM SULFATE/D5W 1 GM/100 ML RTUPB IV SCH ×2 (18:49→19:48)
[2019-01-26 19:18] VITALS: BP 138/76
--- NOTE | 2019-01-27 14:38 | EKG REPORT ---
SEVERITY:- BORDERLINE ECG - SINUS RHYTHM PROBABLE LEFT ATRIAL ABNORMALITY BORDERLINE PROLONGED QT INTERVAL : Confirmed by: Mayra Daniels 27-Jan-2019 14:37:40
== END 2019-01-26 21:18 | disposition home or self-care (01) ==
LOC: ER 14:28
DX: E83.42 Hypomagnesemia (principal); E87.6 Hypokalemia; R42 Dizziness and giddiness; R11.2 Nausea with vomiting, unspecified; R06.6 Hiccough; R53.1 Weakness; R25.1 Tremor, unspecified; F17.200 Nicotine dependence, unspecified, uncomplicated; F12.10 Cannabis abuse, uncomplicated; I10 Essential (primary) hypertension
CPT/HCPCS: 93005; 36415; 84439; 82553; 80307 ×2; 82550; 83690; 83735; 84443; 85025; 80053; 81001; 84484; 84481; 83605; 71046; 93010; J2060; J3475; 96365; 96375; 99285

== ENCOUNTER 2019-02-22 10:18 | Emergency (ER) | payer SELFPAY ==
[2019-02-22] MEDS ORDERED: CLINDAMYCIN HCL 150 MG CAPSULE PO ONE (12:14)
[2019-02-22] MEDS ORDERED: LIDOCAINE 2% VISCOUS SOLN 20 ML UDCUP PO ONE (12:14)
[2019-02-22] MEDS ORDERED: HYDROCODONE/ACETAMINOPHEN 5-325 MG TABLET PO ONE (12:14)
--- NOTE | 2019-02-22 12:17 | ER Document Report ---
HPI - HPI Patient complains to provider of: Dental pain Time Seen by Provider: 02/22/19 12:01 Onset: Last week Onset/Duration: Worse Quality of pain: Achy Pain Level: 5 Context: Patient states that his tooth broke off last week and he developed worsening pain over the past 3 days with facial swelling. Patient denies any fever. Associated Symptoms: Other - Dental pain. denies: Fever Exacerbated by: Denies Relieved by: Denies Similar symptoms previously: Yes Recently seen / treated by doctor: No - ROS ROS below otherwise negative: Yes Systems Reviewed and Negative: Yes All other systems reviewed and negative - CONSTITUTIONAL Constitutional: DENIES: Fever, Chills - RESPIRATORY Respiratory: DENIES: Trouble Breathing, Coughing - GASTROINTESTINAL Gastrointestinal: DENIES: Nausea, Patient vomiting - DERM Skin Color: Normal Skin Problems: None Past Medical History - General Information source: Patient - Social History Smoking Status: Current Every Day Smoker Smoking Education Provided: Yes Frequency of alcohol use: None Drug Abuse: None Occupation: food service representative Family History: Reviewed & Not Pertinent, CVA, Hypertension - Past Medical History Cardiac Medical History: Reports: Hx Hypercholesterolemia, Hx Hypertension Neurological Medical History: Denies: Hx Seizures Renal/ Medical History: Reports: Hx Renal Insufficiency. Denies: Hx Peritoneal Dialysis GI Medical History: Reports: Hx Gastroesophageal Reflux Disease Past Surgical History: Reports: Hx Abdominal Surgery - hernia, Hx Orthopedic Surgery - lumbar - Immunizations Hx Diphtheria, Pertussis, Tetanus Vaccination: No Vertical Provider Document - CONSTITUTIONAL Agree With Documented VS: Yes Exam Limitations: No Limitations General Appearance: WD/WN, No Apparent Distress - INFECTION CONTROL TRAVEL OUTSIDE OF THE [place] IN LAST 30 DAYS: No - HEENT HEENT: Atraumatic, Normocephalic Mouth Diagram: 1 - Gingival swelling worrisome for developing abscess, no sublingual or submental swelling Notes: Subtle swelling along left - NECK Neck: Normal Inspection, Supple. negative: Lymphadenopathy-Left, Lymphadenopathy-Right - RESPIRATORY Respiratory: No Respiratory Distress - CARDIOVASCULAR Cardiovascular: Regular Rhythm, No Murmur, Tachycardia - MUSCULOSKELETAL/EXTREMETIES Musculoskeletal/Extremeties: MAEW - NEURO Level of Consciousness: Awake, Alert, Appropriate - DERM Integumentary: Warm, Dry Course - Vital Signs Vital signs: Temp Pulse Resp BP Pulse Ox 98.2 F 110 H 20 163/93 H 100 02/22/19 10:30 02/22/19 10:30 02/22/19 10:30 02/22/19 10:30 02/22/19 10:30 Procedures - Incision and Drainage Left Type: Simple Incision Method: Incision made with needle Amount/type of drainage: small amount of bloody Mouth/Teeth picture: 1 - Gingival swelling Discharge - Discharge Clinical Impression: Infected dental caries Condition: Stable Disposition: HOME, SELF-CARE Instructions: Clindamycin ([facility]), Dentist, Dental Infection or Abscess ([facility]), Oral Narcotic Medication ([facility]), Toothache ([facility]) Additional Instructions: Return immediately for any new or worsening symptoms Followup with a dental care provider, call tomorrow to make a followup appointment Prescriptions: Clindamycin HCl [Cleocin 300 mg Capsule] 300 mg PO TID #21 capsule Tramadol HCl [Ultram 50 mg Tablet] 50 mg PO ASDIR PRN #15 tablet PRN Reason: Forms: Smoking Cessation Education, Return to Work Referrals: [facility] [Provider Group] - Follow up as needed
[2019-02-22 13:01] VITALS: BP 153/104
== END 2019-02-22 13:02 | disposition home or self-care (01) ==
LOC: ER 10:18
DX: K02.9 Dental caries, unspecified (principal); F17.200 Nicotine dependence, unspecified, uncomplicated; E78.00 Pure hypercholesterolemia, unspecified; I10 Essential (primary) hypertension
CPT/HCPCS: 41800; J3490; 99282

== ENCOUNTER 2019-11-14 19:14 | Inpatient (IN) | payer SELFPAY ==
[2019-11-14 20:18] LABS: ABSOLUTE BASOPHILS # (AUTO) 0.1 10^3/uL (0.0-0.2); ABSOLUTE EOSINOPHILS # (AUTO) 0.1 10^3/uL (0.0-0.6); ABSOLUTE LYMPHOCYTES (AUTO) 2.5 10^3/uL (0.5-4.7); ABSOLUTE NEUT (AUTO) 11.4 10^3/uL (1.7-8.2); BASOPHILS % (AUTO) 0.6 % (0-2); EOSINOPHILS % (AUTO) 0.4 % (0-6); HEMOGLOBIN 14.1 g/dL (13.5-17.0); LYMPHOCYTES % (AUTO) 16.7 % (13-45); MEAN CORPUSCULAR HEMOGLOBIN 34.5 pg (27.0-33.4); MEAN CORPUSCULAR HGB CONC 34.5 g/dL (32.0-36.0); MEAN CORPUSCULAR VOLUME 100 fl (80-97); MONOCYTES % (AUTO) 6.6 % (3-13); PLATELET COUNT 389 10^3/uL (150-450); SEGMENTED NEUTROPHILS % (AUTO) 75.7 % (42-78); TOTAL CELLS COUNTED % (AUTO) 100 %; WHITE BLOOD COUNT 15.1 10^3/uL (4.0-10.5)
[2019-11-14 20:35] LABS: ALKALINE PHOSPHATASE 125 U/L (38-126); ANION GAP 16 (5-19); ASPARTATE AMINO TRANSFERASE 32 U/L (17-59); BILIRUBIN,DIRECT 0.3 mg/dL (0.0-0.4); BILIRUBIN,TOTAL 1.5 mg/dL (0.2-1.3); BLOOD UREA NITROGEN 16 mg/dL (7-20); CALCIUM 10.2 mg/dL (8.4-10.2); CARBON DIOXIDE 26 mmol/L (22-30); CHLORIDE 94 mmol/L (98-107); GLUCOSE 128 mg/dL (75-110); POTASSIUM 3.7 mmol/L (3.6-5.0); TOTAL PROTEIN 8.9 g/dL (6.3-8.2)
[2019-11-14 21:07] LABS: APPEARANCE,URINE SLIGHTLY-CLOUDY; BILIRUBIN,URINE NEGATIVE (NEGATIVE); COLOR,URINE AMBER; GLUCOSE, URINE NEGATIVE (NEGATIVE); KETONES,URINE TRACE mg/dL (NEGATIVE); LEUKOCYTE ESTERASE,URINE NEGATIVE (NEGATIVE); NITRITE,URINE NEGATIVE (NEGATIVE); PROTEIN,URINE 100 mg/dL (NEGATIVE); URINE SPECIFIC GRAVITY 1.018; UROBILINOGEN,URINE NEGATIVE mg/dL (<2.0)
--- NOTE | 2019-11-14 22:28 | RADIOLOGY REPORT (SQ) ---
EXAM DESCRIPTION: XR CHEST 1 VIEW COMPLETED DATE/TME: 11/14/2019 21:43 CLINICAL HISTORY: 48 years, Male, cp chills COMPARISON: 08/09/2018 chest NUMBER OF VIEWS: 1 TECHNIQUE: Portable chest LIMITATIONS: None. FINDINGS: The heart size is normal. Lungs are clear. No pneumothorax IMPRESSION: Negative chest copyright 2010 [employer]- All Rights Reserved
[2019-11-14] MEDS ORDERED: ACETAMINOPHEN 325 MG TABLET PO ONE (22:52)
[2019-11-14] MEDS ORDERED: LORAZEPAM 0.5 MG TABLET PO ONE (22:52)
[2019-11-14] MEDS: RINGERS SOLUTION,LACTATED 1,000 ML IV PRN ×2 (23:05→23:08)
[2019-11-14 23:09] LABS: PHOSPHORUS 2.6 mg/dL (2.5-4.5)
[2019-11-15] MEDS ORDERED: METOPROLOL TARTRATE 25 MG TABLET PO ONE (00:57)
[2019-11-15] MEDS ORDERED: METOPROLOL TARTRATE PF/INJ 5 MG/5 ML SDV IV ONE (01:05)
--- NOTE | 2019-11-15 02:37 | ER Document Report ---
ED General - General TRAVEL OUTSIDE OF THE [place] IN LAST 30 DAYS: No - Related Data Home Medications: lisinopril. motrin. tumeric. potassium <DICK ALVARES - Last Filed: 11/15/19 02:43> <GREGBONI IV - Last Filed: 11/15/19 04:56> - General Chief Complaint: Shortness Of Breath Stated Complaint: DIFFICULTY BREATHING, BACK PAIN - HPI Notes: 48-year-old male history of hypertension, TITI presents with few days of waxing waning diffuse pain in chest and back bilateral flanks hands and feet without associated symptoms or prior episodes. Chief complaint says shortness of breath but this is an error. Patient denies any shortness of breath. Patient has not been compliant with his antihypertensive meds for many months. Patient was previously admitted approximately 7 years ago for TITI attributed to previous azotemia without any follow-up since. Has been using turmeric supplements. Patient denies any fever, cough, vomiting, diarrhea, constipation, melena, bright red blood per rectum, urinary symptoms, cardiac history, drug use, other supplements, alcohol abuse (DICK ALVARES) - Related Data Allergies/Adverse Reactions: No Known Allergies Allergy (Verified 11/14/19 19:32) Past Medical History - General Information source: Patient - Social History Smoking Status: Current Every Day Smoker Chew tobacco use (# tins/day): No Frequency of alcohol use: Social Drug Abuse: Marijuana Family History: Reviewed & Not Pertinent, CVA, Hypertension Patient has homicidal ideation: No - Past Medical History Cardiac Medical History: Reports: Hx Hypercholesterolemia, Hx Hypertension Neurological Medical History: Denies: Hx Seizures Renal/ Medical History: Reports: Hx Renal Insufficiency. Denies: Hx Peritoneal Dialysis GI Medical History: Reports: Hx Gastroesophageal Reflux Disease Past Surgical History: Reports: Hx Abdominal Surgery - hernia, Hx Orthopedic Surgery - lumbar, Hx Tonsillectomy - Immunizations Hx Diphtheria, Pertussis, Tetanus Vaccination: No <DICK ALVARES - Last Filed: 11/15/19 02:43> Review of Systems <DICK ALVARES - Last Filed: 11/15/19 02:43> - Review of Systems Notes: REVIEW OF SYSTEMS: CONSTITUTIONAL : Denies fever, chills, or sweats. EENT: Denies recent cold/sinus symptoms, denies throat pain CARDIOVASCULAR: Denies chest pain, LAURA RESPIRATORY: Denies cough, denies shortness of breath. GASTROINTESTINAL: Denies abdominal pain, nausea/vomiting. GENITOURINARY: Denies difficulty urinating, painful urination. MUSCULOSKELETAL: Denies neck pain, +back pain. SKIN: Denies rash or skin lesions. HEMATOLOGIC : Denies easy bruising or bleeding. LYMPHATIC: Denies swollen, enlarged glands. NEUROLOGICAL: Denies numbness, denies change in gait. PSYCHIATRIC: +anxiety -depression. (DICK ALVARES) Physical Exam <DICK ALVARES - Last Filed: 11/15/19 02:43> - Vital signs Vitals: Temp Pulse BP Pulse Ox 97.7 F 120 H 179/116 H 96 11/14/19 19:24 11/14/19 19:24 11/14/19 19:24 11/14/19 19:24 - Notes Notes: PHYSICAL EXAMINATION: GENERAL: Well-appearing, well-nourished and in no acute distress. HEAD: Atraumatic, normocephalic. EYES: Pupils equal round and appropriate constriction, sclera anicteric, conjunctiva are normal. ENT: nares patent, moist mucous membranes. NECK: Normal range of motion, supple without lymphadenopathy LUNGS: Normal respiratory rate and effort, speaking in full sentences HEART: Regular rate, no JVD, no lower extremity edema ABDOMEN: Soft, nontender, no guarding, no masses, no CVAT EXTREMITIES: Normal range of motion, no pitting or edema. No cyanosis. NEUROLOGICAL: Awake, alert, conversing appropriately, moves all extremities spontaneously. PSYCH: Normal mood, normal affect. SKIN: Warm, Dry, normal turgor, no rashes or lesions noted. (DICK ALVARES) Course - Laboratory Result Diagrams: 11/14/19 20:02 11/14/19 20:02 <DICK ALVARES - Last Filed: 11/15/19 02:43> - Laboratory Result Diagrams: 11/14/19 20:02 11/14/19 20:02 <BONI FRIED IV - Last Filed: 11/15/19 04:56> - Re-evaluation Re-evalutation: 11/15/19 02:41 Diffuse body pain suggestive of possible rhabdo versus electrolyte abnormalities versus viral syndrome, given TITI and market hypertension ordered CT aortic dissection protocol but low pretest probability. Was told by [employer] laboratory technician that could not perform CTA given patient's creatinine and that this was a hospital policy without any exceptions. Patient's TITI prerenal versus renal tubular acidosis. Mild acidosis on VBG. Discussed case with hospitalist, turned over to Dr. Fried pending CT chest abdomen pelvis without contrast. (DICK ALVARES) - Vital Signs Vital signs: Temp Pulse Resp BP Pulse Ox 97.7 F 93 23 H 184/98 H 96 11/15/19 00:47 11/15/19 00:47 11/15/19 04:31 11/15/19 04:31 11/15/19 04:31 - Laboratory Laboratory results interpreted by me: 11/14/19 11/14/19 11/14/19 20:02 20:02 20:02 WBC 15.1 H RBC 4.10 L MCV 100 H MCH 34.5 H Absolute Neuts (auto) 11.4 H Sodium 136.4 L Chloride 94 L Creatinine 2.28 H Est GFR ( Amer) 37 L Est GFR (MDRD) Non-Af 31 L Glucose 128 H Magnesium 1.4 L Total Bilirubin 1.5 H Total Protein 8.9 H Urine Protein Urine Ketones 11/14/19 20:42 WBC RBC MCV MCH Absolute Neuts (auto) Sodium Chloride Creatinine Est GFR ( Amer) Est GFR (MDRD) Non-Af Glucose Magnesium Total Bilirubin Total Protein Urine Protein 100 H Urine Ketones TRACE H - EKG Interpretation by Me Additional EKG results interpreted by me: 11/15/19 02:48 Heart rate 94, sinus rhythm, LVH, if again ST elevations or depressions, TWI in aVL (DICK ALVARES A) Discharge <DICK ALVARES A - Last Filed: 11/15/19 02:43> - Discharge Admitting Provider: [place] (Hospitalist) Unit Admitted: Medical Floor <BONI FRIED IV - Last Filed: 11/15/19 04:56> - Discharge Clinical Impression: TITI (acute kidney injury), Metabolic acidosis, Hypomagnesemia Condition: Fair Disposition: ADMITTED OBSERVATION
--- NOTE | 2019-11-15 03:37 | RADIOLOGY REPORT (SQ) ---
EXAM DESCRIPTION: [facility]: CT ABDOMEN PELVIS WITHOUT IV CONTRAST, CT CHEST WITHOUT IV CONTRAST CLINICAL HISTORY: 48 years Male; back pain htn TITI r/o aortic dissection; TECHNIQUE: CT of the chest abdomen and pelvis without contrast. All CT scans at this facility use dose modulation, iterative reconstruction, and/or weight based dosing when appropriate to reduce radiation dose to as low as reasonably achievable. COMPARISON: None. FINDINGS: Chest: Lungs: Lungs are clear. No pneumothorax or pleural effusion. Mediastinum:No mediastinal mass or adenopathy. Coronary artery calcifications are noted. No thoracic aortic aneurysm or periaortic hemorrhage. Bones:No acute bone findings. Abdomen: Stomach: No significant distention or surrounding edema. Liver:No focal lesions. No intrahepatic ductal distention. Gallbladder:Nondistended Pancreas:Within normal limits Spleen:Within normal limits Right kidney:No hydronephrosis. No renal or ureteral calculi. Left kidney:No hydronephrosis. No renal or ureteral calculi. Adrenal glands:Within normal limits Vascular structures: Mild scattered aortic calcification. No aortic aneurysm. No periaortic hematoma. Pelvis: Small bowel: There is mild wall thickening of several segments of small bowel in the central abdomen. No acute mesenteric edema. No significant small bowel distention. Appendix:Within normal limits Colon: Several scattered diverticula. No acute pericolonic edema or colonic distention. No free intraperitoneal fluid or air. Bones: Mild chronic degenerative changes. Anterior and anterolateral bridging osteophytes in the mid and lower thoracic spine. Old L1 superior endplate fracture. L3-L4: Degenerative disc changes with mild disc bulging. L4-L5: Severe degenerative endplate changes with disc space narrowing. Posterior disc bulging. Bilateral facet arthropathy. No acute bone findings. Bladder: Nondistended. No adjacent edema. No pelvic mass or adenopathy. Note that evaluation of the bowel and solid organs is somewhat limited due to lack of intravenous and oral contrast. IMPRESSION: 1. Atherosclerosis, including coronary artery calcifications 2. No thoracic or abdominal aortic aneurysm. However, aortic dissection cannot be excluded on a noncontrast exam. No secondary signs for aortic dissection. If there is high clinical suspicion, noncontrast MRI may be warranted. 3. Several thickened proximal small bowel loops, suspicious for a nonspecific enteritis. Please correlate with clinical findings. No bowel obstruction or perforation. 4. Mild colonic diverticulosis without evidence for diverticulitis 5. Thoracic and lumbar spine chronic degenerative changes
[2019-11-15] MEDS ORDERED: MAG HYDROX/AL HYDROX/SIMETH SUSP 30 ML UDCUP PO PRN (04:45)
[2019-11-15] MEDS ORDERED: PROMETHAZINE HCL INJ 25 MG/1 ML VIAL IV PRN (04:45)
[2019-11-15] MEDS ORDERED: MAGNESIUM HYDROXIDE SUSP 30 ML UDCUP PO PRN (04:45)
[2019-11-15] MEDS ORDERED: LEVALBUTEROL HCL NEB 0.63 MG/3 ML AMPUL NEB PRN (04:45)
[2019-11-15] MEDS ORDERED: GUAIFENESIN SYRP 200 MG/10 ML UDC PO PRN (04:50)
[2019-11-15] MEDS ORDERED: ACETAMINOPHEN 325 MG TABLET PO PRN (04:50)
[2019-11-15] MEDS ORDERED: METOPROLOL TARTRATE PF/INJ 5 MG/5 ML SDV IV PRN (04:50)
--- NOTE | 2019-11-15 06:16 | EKG REPORT ---
SEVERITY:- ABNORMAL ECG - SINUS RHYTHM PROBABLE LEFT ATRIAL ABNORMALITY LVH WITH SECONDARY REPOLARIZATION ABNORMALITY CONSIDER ANTERIOR INFARCT : Confirmed by: Fred Whalen MD 15-Nov-2019 06:16:11
[2019-11-15 06:51] LABS: CHOLESTEROL 248.12 mg/dL (0-200)
[2019-11-15] MEDS: PANTOPRAZOLE SODIUM 40 MG TABLET.DR PO SCH (06:53)
[2019-11-15] MEDS: HEPARIN SOD (PORCINE) 5,000 UNIT/ML 1 ML VIAL SUBCUT SCH ×3 (06:53→21:52)
[2019-11-15 07:04] LABS: DIRECT LDL 122 mg/dL (<100); TRIGLYCERIDES 604 mg/dL (<150)
--- NOTE | 2019-11-15 07:19 | PDOC H&P ---
History of Present Illness Admission Date/PCP: 11/15/2019 04:29 No local PCP Patient complains of: Malaise History of Present Illness: BONI PELLETIER JR is a 48 year old male who presented to the emergency room with a 5-day history of malaise. He admits constant but waxing and waning (mode rate to severe) generalized muscle ache type pain throughout his torso also involving the bilateral hands and feet. He admits prior similar symptoms several years ago when he had acute renal failure. He denies other associated or accompanying signs and symptoms. He has not identified any aggravating or ameliorating factors for his malaise. In the emergency room he was found to have acute kidney injury and was subsequently admitted to the hospital for further evaluation and treatment. Past Medical History Cardiac Medical History: Reports: Hyperlipidema, Hypertension Denies: Coronary Artery Disease, Myocardial Infarction Pulmonary Medical History: Denies: Asthma, Chronic Obstructive Pulmonary Disease (COPD) EENT Medical History: Denies: Cataracts, Ears - Hearing aids Neurological Medical History: Denies: Hemorrhagic CVA, Ischemic CVA, Seizures Endocrine Medical History: Reports: Obesity Denies: Diabetes Mellitus Type 1, Diabetes Mellitus Type 2, Hyperthyroidism, Hypothyroidism Renal/ Medical History: Reports: Other - Acute kidney failure Denies: Chronic Kidney Disease, Nephrolithiasis Malignancy Medical History: Reports: None GI Medical History: Reports: Gastroesophageal Reflux Disease Denies: Cirrhosis, Hepatitis Musculoskeltal Medical History: Reports: Arthritis - Psoriatic arthritis Denies: Gout Skin Medical History: Reports: Psoriasis Denies: Eczema Psychiatric Medical History: Reports: Substance Abuse, Tobacco Dependency Denies: Alcohol Dependency Traumatic Medical History: Reports: None Hematology: Denies: Anemia, Bleeding Tendencies Infectious Medical History: Reports: None Past Surgical History Past Surgical History: Reports: Orthopedic Surgery - lumbar spine surgery, Tonsillectomy Social History Information Source: Patient Lives with: Family Smoking Status: Current Every Day Smoker Electronic Cigarette use?: No Frequency of Alcohol Use: Occasional Hx Recreational Drug Use: Yes - Remote use Drugs: Marijuana Hx Prescription Drug Abuse: No - Advance Directive Resuscitation Status: Full Code Surrogate healthcare decision maker:: Sylvie Pelletier Family History Family History: CAD, CVA, Hypertension Parental Family History Reviewed: Yes Children Family History Reviewed: No Sibling(s) Family History Reviewed.: Yes Medication/Allergy Home Medications: Amlodipine Besylate [Norvasc 5 mg Tablet] 5 mg PO Q12 #60 tablet 08/10/18 Lisinopril [Prinivil 10 mg Tablet] 10 mg PO DAILY #30 tablet 08/10/18 Metoprolol Tartrate [Lopressor 25 mg Tablet] 25 mg PO Q12 #60 tab 08/10/18 Chlordiazepoxide HCl [Librium 25 mg Capsule] 25 mg PO Q12 4 Days #19 capsule 01/26/19 Clindamycin HCl [Cleocin 300 mg Capsule] 300 mg PO TID #21 capsule 02/22/19 Tramadol HCl [Ultram 50 mg Tablet] 50 mg PO ASDIR PRN #15 tablet 02/22/19 Allergies/Adverse Reactions: No Known Allergies Allergy (Verified 11/14/19 19:32) Review of Systems Constitutional: PRESENT: as per HPI, other - Malaise. ABSENT: chills, fever(s) Eyes: ABSENT: visual disturbances, other - Eye pain Ears: ABSENT: hearing changes, other - Ear pain Nose, Mouth, and Throat: ABSENT: headache(s), sore throat Cardiovascular: ABSENT: chest pain, palpitations Respiratory: ABSENT: cough, dyspnea Gastrointestinal: ABSENT: abdominal pain, constipation, diarrhea, nausea, vomiting Genitourinary: ABSENT: dysuria, hematuria Musculoskeletal: PRESENT: as per HPI, back pain, other - Generalized achy pain of the torso, bilateral hands and feet. ABSENT: joint swelling Integumentary: ABSENT: pruritus, rash Neurological: ABSENT: confusion, convulsions, focal weakness, memory loss, syncope Psychiatric: ABSENT: anxiety, depression Endocrine: ABSENT: cold intolerance, heat intolerance, polydipsia, polyphagia, polyuria Hematologic/Lymphatic: ABSENT: easy bleeding, easy bruising Allergic/Immunologic: ABSENT: seasonal rhinorrhea Physical Exam Vital Signs: Temp Pulse Resp BP Pulse Ox 97.7 F 93 23 H 176/93 H 96 11/15/19 00:47 11/15/19 00:47 11/15/19 04:16 11/15/19 04:16 11/15/19 04:16 Intake & Output 11/13/19 11/14/19 11/15/19 23:59 23:59 23:59 Intake Total 50 1000 Balance 50 1000 Weight 97.522 kg General appearance: PRESENT: no acute distress, cooperative Head exam: PRESENT: atraumatic, normocephalic Eye exam: PRESENT: conjunctiva pink. ABSENT: conjunctival injection, scleral icterus Ear exam: PRESENT: normal external ear exam. ABSENT: bleeding, drainage Mouth exam: PRESENT: dry mucosa, neck supple Neck exam: ABSENT: thyromegaly, tracheal deviation Respiratory exam: PRESENT: clear to auscultation rocío, symmetrical, unlabored Cardiovascular exam: PRESENT: RRR. ABSENT: clicks, gallop, rubs Pulses: PRESENT: normal radial pulses, normal dorsalis pedis pul Vascular exam: PRESENT: normal capillary refill. ABSENT: pallor GI/Abdominal exam: PRESENT: normal bowel sounds, soft Rectal exam: PRESENT: deferred Extremities exam: ABSENT: joint swelling, pedal edema Musculoskeletal exam: ABSENT: deformity, dislocation Neurological exam: PRESENT: alert, oriented to person, oriented to place, oriented to time, oriented to situation, CN II-XII grossly intact. ABSENT: motor sensory deficit Psychiatric exam: PRESENT: appropriate affect, normal mood Skin exam: PRESENT: dry, intact, warm. ABSENT: jaundice, rash, urticaria Results Laboratory Results: 11/14/19 20:02 11/14/19 20:02 11/14/19 11/14/19 11/14/19 20:02 20:02 20:02 WBC 15.1 H RBC 4.10 L Hgb 14.1 Hct 41.0 MCV 100 H MCH 34.5 H MCHC 34.5 RDW 14.0 Plt Count 389 Seg Neutrophils % 75.7 Sodium 136.4 L Potassium 3.7 Chloride 94 L Carbon Dioxide 26 Anion Gap 16 BUN 16 Creatinine 2.28 H Est GFR ( Amer) 37 L Glucose 128 H Lactic Acid Calcium 10.2 Phosphorus 2.6 Magnesium 1.4 L Total Bilirubin 1.5 H AST 32 Alkaline Phosphatase 125 Total Protein 8.9 H Albumin 5.0 Lipase 101.0 Urine Color Urine Appearance Urine pH Ur Specific [place] Urine Protein Urine Glucose (UA) Urine Ketones Urine Blood Urine Nitrite Ur Leukocyte Esterase Urine WBC (Auto) Urine RBC (Auto) 11/14/19 11/15/19 20:42 02:00 WBC RBC Hgb Hct MCV MCH MCHC RDW Plt Count Seg Neutrophils % Sodium Potassium Chloride Carbon Dioxide Anion Gap BUN Creatinine Est GFR ( Amer) Glucose Lactic Acid 0.7 Calcium Phosphorus Magnesium Total Bilirubin AST Alkaline Phosphatase Total Protein Albumin Lipase Urine Color [place] Urine Appearance SLIGHTLY-CLOUDY Urine pH 8.0 Ur Specific [place] 1.018 Urine Protein 100 H Urine Glucose (UA) NEGATIVE Urine Ketones TRACE H Urine Blood NEGATIVE Urine Nitrite NEGATIVE Ur Leukocyte Esterase NEGATIVE Urine WBC (Auto) 3 Urine RBC (Auto) 1 11/14/19 11/14/19 20:02 20:02 Creatine Kinase 140 Troponin I 0.033 Impressions: Chest X-Ray 11/14/19 21:43 IMPRESSION: Negative chest copyright 2011 [employer]- All Rights Reserved Abdomen/Pelvis CT 11/15/19 00:49 IMPRESSION: 1. Atherosclerosis, including coronary artery calcifications 2. No thoracic or abdominal aortic aneurysm. However, aortic dissection cannot be excluded on a noncontrast exam. No secondary signs for aortic dissection. If there is high clinical suspicion, noncontrast MRI may be warranted. 3. Several thickened proximal small bowel loops, suspicious for a nonspecific enteritis. Please correlate with clinical findings. No bowel obstruction or perforation. 4. Mild colonic diverticulosis without evidence for diverticulitis 5. Thoracic and lumbar spine chronic degenerative changes Chest CT 11/15/19 00:49 IMPRESSION: 1. Atherosclerosis, including coronary artery calcifications 2. No thoracic or abdominal aortic aneurysm. However, aortic dissection cannot be excluded on a noncontrast exam. No secondary signs for aortic dissection. If there is high clinical suspicion, noncontrast MRI may be warranted. 3. Several thickened proximal small bowel loops, suspicious for a nonspecific enteritis. Please correlate with clinical findings. No bowel obstruction or perforation. 4. Mild colonic diverticulosis without evidence for diverticulitis 5. Thoracic and lumbar spine chronic degenerative changes Assessment and Plan - Diagnosis (1) TITI (acute kidney injury) Is this a current diagnosis for this admission?: Yes (2) Hypertension Qualifiers: Hypertension type: essential hypertension Qualified Code(s): I10 - Essent ial (primary) hypertension Is this a current diagnosis for this admission?: Yes (3) Hyperlipidemia Qualifiers: Hyperlipidemia type: unspecified Qualified Code(s): E78.5 - Hyperlipidemia, unspecified Is this a current diagnosis for this admission?: Yes (4) Tobacco dependence Is this a current diagnosis for this admission?: Yes - Plan Summary Summary: Patient is admitted to the medical floor he will receive routine supportive and symptomatic cares. He will be treated with IV fluids utilizing D5 LR at 167 mL/h initially. He will receive morphine sulfate 2 to 4 mg IV every 2 hours as needed for pain utilizing a sliding scale for dosing. He will use Ativan 1 mg IV every 4 hours as needed for anxiety or restlessness. He will be maintained on a cardiac diet. CBCs, metabolic profiles, magnesium levels, thyroid studies, lipid profiles and other laboratory and/or radiographic investigations will be undertaken as appropriate. The patient's hypertension will initially be addres sed utilizing IV hydralazine and/or metoprolol as needed for control with oral agents to be determined by his daytime hospitalist. Smoking cessation is advised and counseled briefly at the bedside. A nicotine replacement patch will be made available for the patient, if desired. - Time Time Spent with patient: 15-24 minutes Smoking Cessation Education: 3 to 10 minutes Anticipated discharge: Home - Inpatient Certification Based on my medical assessment, after consideration of the patient's comorbidities, presenting symptoms, or acuity I expect that the services needed warrant INPATIENT care.: Yes I certify that my determination is in accordance with my understanding of Medicare's requirements for reasonable and necessary INPATIENT services [42 CFR 412.3e].: Yes Medical Necessity: Need Close Monitoring Due to Risk of Patient Decompensation, Need For IV Fluids, Risk of Complication if Not Cared For in Hospital
[2019-11-15] MEDS: HYDRALAZINE HCL INJ/PF 20 MG/1 ML SDV IV PRN (07:36)
[2019-11-15] MEDS: DEXTROSE 5%-LACTATED RINGERS 1,000 ML IV PRN ×3 (07:41→22:56)
[2019-11-15] MEDS: MORPHINE SULFATE 10 MG/ML INJ IV PRN ×2 (07:45→21:52)
[2019-11-15 08:31] LABS: FREE T3 4.51 pg/mL (2.77-5.27)
[2019-11-15 08:45] LABS: THYROID STIMULATING HORMONE 3.7 uIU/mL (0.47-4.68)
[2019-11-15] MEDS: DOCUSATE SODIUM 100 MG CAPSULE PO SCH ×2 (09:17→18:40)
[2019-11-15] MEDS: MAGNESIUM SULFATE/D5W 1 GM/100 ML RTUPB IV SCH ×2 (09:21→10:26)
--- NOTE | 2019-11-15 09:31 | Progress Note ---
Provider Note Provider Note: The patient was just admitted by Dr. Quintanilla earlier this morning. He is still having some discomfort. It is too early to repeat blood work but he does report feeling slightly better on admission. In addition CT scan of the abdomen showed possible inflammation in several bowel loops. This could be an enteritis as well. We will add a sed rate and CRP to his blood work. Will monitor for diarrhea, intake and output and continue to monitor serum chemistries.
[2019-11-15] MEDS: LORAZEPAM INJ 2 MG/1 ML VIAL IV PRN (14:08)
[2019-11-15] MEDS: NICOTINE 21 MG/24 HR PATCH.TD24 TD PRN (23:39)
[2019-11-16] MEDS: HYDRALAZINE HCL INJ/PF 20 MG/1 ML SDV IV PRN (03:46)
[2019-11-16] MEDS: MORPHINE SULFATE 10 MG/ML INJ IV PRN ×2 (03:46→10:27)
[2019-11-16] MEDS: DEXTROSE 5%-LACTATED RINGERS 1,000 ML IV PRN (04:58)
[2019-11-16] MEDS: LORAZEPAM INJ 2 MG/1 ML VIAL IV PRN (05:00)
[2019-11-16] MEDS: HEPARIN SOD (PORCINE) 5,000 UNIT/ML 1 ML VIAL SUBCUT SCH ×2 (05:07→14:00)
[2019-11-16] MEDS: PANTOPRAZOLE SODIUM 40 MG TABLET.DR PO SCH (05:07)
[2019-11-16 06:01] LABS: HEMATOCRIT 33.7 % (37.9-51.0); MEAN CORPUSCULAR HEMOGLOBIN 35.4 pg (27.0-33.4); MEAN CORPUSCULAR HGB CONC 35.3 g/dL (32.0-36.0); MEAN CORPUSCULAR VOLUME 100 fl (80-97); PLATELET COUNT 234 10^3/uL (150-450); RED BLOOD COUNT 3.36 10^6/uL (4.35-5.55); RED CELL DISTRIBUTION WIDTH 13.9 % (11.5-14.0); WHITE BLOOD COUNT 8.1 10^3/uL (4.0-10.5)
[2019-11-16 06:06] LABS: HEMOGLOBIN 11.9 g/dL (13.5-17.0)
[2019-11-16 06:18] LABS: ANION GAP 8 (5-19); BLOOD UREA NITROGEN 16 mg/dL (7-20); CARBON DIOXIDE 26 mmol/L (22-30); CHLORIDE 101 mmol/L (98-107); GLUCOSE 132 mg/dL (75-110); POTASSIUM 3.1 mmol/L (3.6-5.0)
--- NOTE | 2019-11-16 10:11 | PDOC DISCHARGE SUMMARY ---
Impression - Admit/DC Date/PCP Admission Date/Primary Care Provider: 11/15/19 04:53 Discharge Date: 11/16/19 - Assessment Summary: Patient is admitted to the medical floor he will receive routine supportive and symptomatic cares. He will be treated with IV fluids utilizing D5 LR at 167 mL/h initially. He will receive morphine sulfate 2 to 4 mg IV every 2 hours as needed for pain utilizing a sliding scale for dosing. He will use Ativan 1 mg IV every 4 hours as needed for anxiety or restlessness. He will be maintained on a cardiac diet. CBCs, metabolic profiles, magnesium levels, thyroid studies, lipid profiles and other laboratory and/or radiographic investigations will be undertaken as appropriate. The patient's hypertension will initially be addressed utilizing IV hydralazine and/or metoprolol as needed for control with oral agents to be determined by his daytime hospitalist. Smoking cessation is advised and counseled briefly at the bedside. A nicotine replacement patch will be made available for the patient, if desired. - Additional Information Resuscitation Status: Full Code Discharge Diet: As Tolerated Discharge Activity: Activity As Tolerated Referrals: [facility] [Outside] - 11/24/19 3:00 pm (It will be telegraphic call.) Prescriptions: Ciprofloxacin HCl 250 mg PO BID #14 tablet Metronidazole [Flagyl 500 mg Tablet] 500 mg PO TID #21 tablet Amlodipine Besylate [Norvasc 5 mg Tablet] 5 mg PO DAILY #30 tablet Home Medications: Amlodipine Besylate [Norvasc 5 mg Tablet] 5 mg PO DAILY #30 tablet 11/16/19 Ciprofloxacin HCl 250 mg PO BID #14 tablet 11/16/19 Metronidazole [Flagyl 500 mg Tablet] 500 mg PO TID #21 tablet 11/16/19 Nicotine [Nicoderm 21 mg/24 Hr Transderm Patch] 1 each TD DAILYP PRN patch.td24 11/16/19 History of Present Illiness History of Present Illness: BONI LINTON JR is a 48 year old male who presented to the emergency room with a 5-day history of malaise. He admits constant but waxing and waning (moderate to severe) generalized muscle ache type pain throughout his torso also involving the bilateral hands and feet. He admits prior similar symptoms several years ago when he had acute renal failure. He denies other associated or accompanying signs and symptoms. He has not identified any aggravating or ameliorating factors for his malaise. In the emergency room he was found to have acute kidney injury and was subsequently admitted to the hospital for further evaluation and treatment. Hospital Course Hospital Course: Unremarkable hospital course. With fluids his acute kidney injury resolved. CT scan did show some inflammation small loops of bowel. I explained to the patient that this certainly could be an inflammatory bowel disease since his sed rate and CRP were elevated. It also could be infectious. I told him it is worth a trial of Cipro and Flagyl as an outpatient. I stressed that he should get a referral to gastroenterology as well. Physical Exam Vital Signs: Temp Pulse Resp BP Pulse Ox 98.3 F 86 20 150/80 H 97 11/16/19 03:28 11/16/19 07:00 11/16/19 03:28 11/16/19 03:48 11/16/19 03:28 Intake & Output 11/15/19 11/16/19 11/17/19 06:59 06:59 06:59 Intake Total 1050 5138 Output Total 2300 Balance 1050 2838 Weight 97.522 kg 106.2 kg General appearance: PRESENT: no acute distress Respiratory exam: PRESENT: clear to auscultation rocío. ABSENT: rales, rhonchi, wheezes Cardiovascular exam: PRESENT: RRR, +S1, +S2 GI/Abdominal exam: PRESENT: normal bowel sounds, soft. ABSENT: distended, guarding, tenderness Results Laboratory Results: WBC 8.1 10^3/uL (4.0-10.5) 11/16/19 05:04 RBC 3.36 10^6/uL (4.35-5.55) L 11/16/19 05:04 Hgb 11.9 g/dL (13.5-17.0) L D 11/16/19 05:04 Hct 33.7 % (37.9-51.0) L 11/16/19 05:04 MCV 100 fl (80-97) H 11/16/19 05:04 MCH 35.4 pg (27.0-33.4) H 11/16/19 05:04 MCHC 35.3 g/dL (32.0-36.0) 11/16/19 05:04 RDW 13.9 % (11.5-14.0) 11/16/19 05:04 Plt Count 234 10^3/uL (150-450) 11/16/19 05:04 Lymph % (Auto) 16.7 % (13-45) 11/14/19 20:02 Howard % (Auto) 6.6 % (3-13) 11/14/19 20:02 Eos % (Auto) 0.4 % (0-6) 11/14/19 20:02 Baso % (Auto) 0.6 % (0-2) 11/14/19 20:02 Absolute Neuts (auto) 11.4 10^3/uL (1.7-8.2) H 11/14/19 20:02 Absolute Lymphs (auto) 2.5 10^3/uL (0.5-4.7) 11/14/19 20:02 Absolute Monos (auto) 1.0 10^3/uL (0.1-1.4) 11/14/19 20:02 Absolute Eos (auto) 0.1 10^3/uL (0.0-0.6) 11/14/19 20:02 Absolute Basos (auto) 0.1 10^3/uL (0.0-0.2) 11/14/19 20:02 Seg Neutrophils % 75.7 % (42-78) 11/14/19 20:02 ESR 90 mm/hr (0-15) H 11/15/19 06:18 Sodium 135.4 mmol/L (137-145) L 11/16/19 05:04 Potassium 3.1 mmol/L (3.6-5.0) L 11/16/19 05:04 Chloride 101 mmol/L (98-107) 11/16/19 05:04 Carbon Dioxide 26 mmol/L (22-30) 11/16/19 05:04 Anion Gap 8 (5-19) 11/16/19 05:04 BUN 16 mg/dL (7-20) 11/16/19 05:04 Creatinine 1.24 mg/dL (0.52-1.25) 11/16/19 05:04 Est GFR ( Amer) > 60 (>60) 11/16/19 05:04 Est GFR (MDRD) Non-Af > 60 (>60) 11/16/19 05:04 Glucose 132 mg/dL (75-110) H 11/16/19 05:04 Lactic Acid 0.7 mmol/L (0.7-2.1) 11/15/19 02:00 Calcium 9.0 mg/dL (8.4-10.2) 11/16/19 05:04 Phosphorus 2.6 mg/dL (2.5-4.5) 11/14/19 20:02 Magnesium 1.9 mg/dL (1.6-2.3) 11/16/19 05:04 Total Bilirubin 1.5 mg/dL (0.2-1.3) H 11/14/19 20:02 Direct Bilirubin 0.3 mg/dL (0.0-0.4) 11/14/19 20:02 Neonat Total Bilirubin Not Reportable 11/14/19 20:02 Neonat Direct Bilirubin Not Reportable 11/14/19 20:02 Neonat Indirect Bili Not Reportable 11/14/19 20:02 AST 32 U/L (17-59) 11/14/19 20:02 ALT 18 U/L (<50) 11/14/19 20:02 Alkaline Phosphatase 125 U/L (38-126) 11/14/19 20:02 Creatine Kinase 140 U/L (55-170) 11/14/19 20:02 Troponin I 0.033 ng/mL 11/14/19 20:02 C-Reactive Protein 25.5 mg/L (<10.0) H 11/15/19 06:18 Total Protein 8.9 g/dL (6.3-8.2) H 11/14/19 20:02 Albumin 5.0 g/dL (3.5-5.0) 11/14/19 20:02 Triglycerides 604 mg/dL (<150) H 11/15/19 06:18 Cholesterol 248.12 mg/dL (0-200) H 11/15/19 06:18 LDL Cholesterol Direct 122 mg/dL (<100) H 11/15/19 06:18 VLDL Cholesterol 121.0 mg/dL (10-31) H 11/15/19 06:18 VLDL Cholesterol, Calc UNABLE TO CALCULATE 11/15/19 06:18 HDL Cholesterol 41 mg/dL (>40) 11/15/19 06:18 Lipase 101.0 U/L (23-300) 11/14/19 20:02 TSH 3.70 uIU/mL (0.47-4.68) 11/15/19 06:18 Free T3 pg/mL 4.51 pg/mL (2.77-5.27) 11/15/19 06:18 Urine Color ALONA 11/14/19 20:42 Urine Appearance SLIGHTLY-CLOUDY 11/14/19 20:42 Urine pH 8.0 (5.0-9.0) 11/14/19 20:42 Ur Specific [place] 1.018 11/14/19 20:42 Urine Protein 100 mg/dL (NEGATIVE) H 11/14/19 20:42 Urine Glucose (UA) NEGATIVE mg/dL (NEGATIVE) 11/14/19 20:42 Urine Ketones TRACE mg/dL (NEGATIVE) H 11/14/19 20:42 Urine Blood NEGATIVE (NEGATIVE) 11/14/19 20:42 Urine Nitrite NEGATIVE (NEGATIVE) 11/14/19 20:42 Urine Bilirubin NEGATIVE (NEGATIVE) 11/14/19 20:42 Urine Urobilinogen NEGATIVE mg/dL (<2.0) 11/14/19 20:42 Ur Leukocyte Esterase NEGATIVE (NEGATIVE) 11/14/19 20:42 Urine WBC (Auto) 3 /HPF 11/14/19 20:42 Urine RBC (Auto) 1 /HPF 11/14/19 20:42 U Hyaline Cast (Auto) 4 /LPF 11/14/19 20:42 Squamous Epi Cells Auto 1 /HPF 11/14/19 20:42 Urine Mucus (Auto) MOD /LPF 11/14/19 20:42 Urine Ascorbic Acid NEGATIVE (NEGATIVE) 11/14/19 20:42 COVID-19 Source Cancelled 11/15/19 02:04 COVID-19 ([facility]) Cancelled 11/15/19 02:04 SARS-CoV-2 (PCR) NEGATIVE (NEGATIVE) 11/15/19 02:14 11/14/19 20:02 Troponin I 0.033 Impressions: Chest X-Ray 11/14/19 21:43 IMPRESSION: Negative chest copyright 2011 [employer]- All Rights Reserved Abdomen/Pelvis CT 11/15/19 00:49 IMPRESSION: 1. Atherosclerosis, including coronary artery calcifications 2. No thoracic or abdominal aortic aneurysm. However, aortic dissection cannot be excluded on a noncontrast exam. No secondary signs for aortic dissection. If there is high clinical suspicion, noncontrast MRI may be warranted. 3. Several thickened proximal small bowel loops, suspicious for a nonspecific enteritis. Please correlate with clinical findings. No bowel obstruction or perforation. 4. Mild colonic diverticulosis without evidence for diverticulitis 5. Thoracic and lumbar spine chronic degenerative changes Chest CT 11/15/19 00:49 IMPRESSION: 1. Atherosclerosis, including coronary artery calcifications 2. No thoracic or abdominal aortic aneurysm. However, aortic dissection cannot be excluded on a noncontrast exam. No secondary signs for aortic dissection. If there is high clinical suspicion, noncontrast MRI may be warranted. 3. Several thickened proximal small bowel loops, suspicious for a nonspecific enteritis. Please correlate with clinical findings. No bowel obstruction or perforation. 4. Mild colonic diverticulosis without evidence for diverticulitis 5. Thoracic and lumbar spine chronic degenerative changes Plan Health Concerns: Thickened loops of small bowel. 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 Pretension will need treatment as well. Plan of Treatment: Trial of Cipro and Flagyl for the enteritis. Will start an angiotensin receptor bette for his hypertension. Goals: Investigation and final diagnosis of enteritis Control of blood pressure Maintaining hydration to avoid acute kidney injury Time Spent: Greater than 30 Minutes Stroke Is this a Stroke Patient?: No Acute Heart Failure - Is this a Heart Failure Patient?: No
[2019-11-16] MEDS: NICOTINE 21 MG/24 HR PATCH.TD24 TD PRN (10:16)
[2019-11-16] MEDS: DOCUSATE SODIUM 100 MG CAPSULE PO SCH (10:33)
[2019-11-16 13:38] VITALS: BP 150/80
== END 2019-11-16 16:04 | disposition home or self-care (01) | DRG 683 ==
LOC: ER 19:14 → EH 11-15 04:53 → 3W 11-15 07:09
PROVIDERS: ADMIT Emergency Medicine; ATTEND Hospitalist
DX: N17.9 Acute kidney failure, unspecified (principal); E87.2 Acidosis; E78.5 Hyperlipidemia, unspecified; I10 Essential (primary) hypertension; E66.9 Obesity, unspecified; K21.9 Gastro-esophageal reflux disease without esophagitis; L40.50 Arthropathic psoriasis, unspecified; E78.00 Pure hypercholesterolemia, unspecified; E83.42 Hypomagnesemia; Z68.34 Body mass index [BMI] 34.0-34.9, adult; F17.210 Nicotine dependence, cigarettes, uncomplicated; Z03.818 Encounter for observation for suspected exposure to other biological agents ruled out; Z79.899 Other long term (current) drug therapy
CPT/HCPCS: 36415; 71045; 71250; 74176; 80048; 80053; 80061; 81001; 82550; 83605; 83690; 83735; 84100; 84443; 84481; 84484; 85025; 85027; 85652; 86140; 87635; 93005; 93010; 96361; 96374; 99285; C9803; J0360; J1644; J2060; J2270; J3475; J3490; J7120; J7121

== ENCOUNTER 2019-11-30 16:51 | Emergency (ER) | payer SELFPAY ==
[2019-11-30 18:22] VITALS: BP 157/105
--- NOTE | 2019-11-30 19:28 | ER Document Report ---
ED General - General Chief Complaint: Pain All Over Stated Complaint: JOINT/MUSCLE PAIN,DIARRHEA Time Seen by Provider: 11/30/19 18:28 Notes: 48-year-old male returns emergency department complaining of migratory polyarticular pains going on for the past 2 weeks that he states have not improved since his hospitalization. Patient states that he was diagnosed 3 years ago with psoriatic arthritis, states that he been tried on Enbrel but he could not afford it. States that approximately twice a year he will get a flareup where multiple joints are swollen or painful and then it self resolves, states this time it is lasting somewhat longer than usual. States that it started with some pain in his left wrist that it went to his right elbow now it is in his right hand and his bilateral ankles. Complains of a dry rash to his left anterior thigh. Denies any fevers, chills, sweats, vomiting or abdominal pain. States he had a negative coronavirus swab when he was hospitalized 2 weeks ago for renal failure from dehydration. Denies any increase in the diarrhea that he has had. Denies change in urination, decreased urination or dark urine. No longer follows with anybody for his psoriatic arthritis. Has not tried any ibuprofen, does not take any steroids. Currently being seen through [facility] for his hypertension and hyperlipidemia. TRAVEL OUTSIDE OF THE [place] IN LAST 30 DAYS: No - Related Data Allergies/Adverse Reactions: No Known Allergies Allergy (Verified 11/14/19 19:32) Past Medical History - General Information source: Patient - Social History Smoking Status: Current Every Day Smoker Frequency of alcohol use: None Drug Abuse: None Family History: CAD, CVA, Hypertension Patient has homicidal ideation: No - Past Medical History Cardiac Medical History: Reports: Hx Hypercholesterolemia, Hx Hypertension Denies: Hx Coronary Artery Disease, Hx Heart Attack Pulmonary Medical History: Denies: Hx Asthma, Hx COPD Neurological Medical History: Denies: Hx Seizures Endocrine Medical History: Denies: Hx Diabetes Mellitus Type 1, Hx Diabetes Mellitus Type 2, Hx Hyperthyroidism, Hx Hypothyroidism Renal/ Medical History: Reports: Hx Renal Insufficiency. Denies: Hx Peritoneal Dialysis GI Medical History: Reports: Hx Gastroesophageal Reflux Disease. Denies: Hx Cirrhosis, Hx Hepatitis Musculoskeletal Medical History: Reports Hx Arthritis - Psoriatic arthritis, Denies Hx Gout Skin Medical History: Denies Hx Eczema, Reports Hx Psoriasis Psychiatric Medical History: Denies: Hx Depression Infectious Medical History: Denies: Hx Hepatitis Past Surgical History: Reports: Hx Abdominal Surgery - hernia, Hx Orthopedic Surgery - lumbar spine surgery, Hx Tonsillectomy - Immunizations Hx Diphtheria, Pertussis, Tetanus Vaccination: No Review of Systems - Review of Systems Constitutional: No symptoms reported. denies: Chills, Diaphoresis, Malaise, Weakness EENT: No symptoms reported Cardiovascular: No symptoms reported Gastrointestinal: See HPI, Diarrhea. denies: Abdomen distended, Abdominal pain, Nausea, Vomiting Genitourinary: No symptoms reported Musculoskeletal: See HPI, Joint pain, Joint swelling Skin: See HPI, Rash -: Yes All other systems reviewed and negative Physical Exam - Vital signs Vitals: Temp 98.4 F 11/30/19 16:53 Interpretation: Hypertensive, Tachycardic - Notes Notes: GENERAL: Alert, interacts well. No acute distress. HEAD: Normocephalic, atraumatic EYES: Pupils equal, round and reactive to light, extraocular movements intact. ENT: Oral mucosa moist, tongue midline. NECK: Full range of motion, supple, trachea midline. LUNGS: Clear to auscultation bilaterally, no wheezes, rales or rhonchi, no respiratory distress. HEART: Regular rate and rhythm, no murmurs, gallops, rubs. ABDOMEN: Soft, nontender, nondistended, bowel sounds present in all 4 quadrants. EXTREMITIES: Moves all 4 extremities spontaneously but complains of pain with movement of his joints. Small amount of swelling to the right hand, small swelling swelling to the left ankle, bilateral ankles are tender to palpation, right wrist is tender to palpation, right elbow is tender to palpation, able to move all of his joints but complains of pain. Radial and dorsalis pedis pulses 2/4 bilaterally. No cyanosis. NEUROLOGICAL: Alert and oriented x3, normal speech PSYCH: Normal mood, normal affect. SKIN: Warm, Dry, somewhat silvery white plaquing rash to the anterior aspect of the left thigh approximately 5 cm long and 2 cm wide. Course - Re-evaluation Re-evalutation: 11/30/19 19:28 Presentation is somewhat different than 2 weeks ago, he is not complaining of pain diffusely throughout all of his muscles, his pain is only limited to his joints specifically. The pain is reproducible on examination. He has a rash on his left anterior thigh that is consistent with psoriasis. Patient has a diagnosis of psoriatic arthritis that is not currently being cared for. Discussed with patient risks and benefits of short course of NSAIDs for symptom control along with steroid taper. Did discuss the risks of recurrent renal failure should he take high-dose NSAIDs for a long period of time. Patient is agreeable to limiting his NSAIDs to 3 days. Patient will follow up with primary care physician as an outpatient. He will return here for worsening pain, for fevers, for difficulty urinating or decreased urination or any new or concerning symptoms. - Vital Signs Vital signs: Temp Pulse Resp BP Pulse Ox 98.4 F 108 H 16 157/105 H 100 11/30/19 18:20 11/30/19 18:20 11/30/19 18:20 11/30/19 18:20 11/30/19 18:20 Discharge - Discharge Clinical Impression: Psoriatic arthritis Condition: Stable Disposition: HOME, SELF-CARE Additional Instructions: When you were seen previously you had trouble with your kidneys because of dehydration. When you were discharged your kidney function was back to normal. Please make sure you are drinking plenty of water. Your urine should be clear to very light yellow and you should be urinating at least 5 times a day. If you are not urinating at least 5 times a day, if your urination decreases from normal or if your urine becomes persistently dark in color despite drinking plenty of water please return to the emergency department. Your pain appears to be coming from a flare of your psoriatic arthritis. This is a chronic disease that will not go away. It may temporarily improve but it will come back. It is very important that you follow-up with a primary care physician and likely a special shopper in order to better manage this. In order to provide you with temporary relief I have prescribed a tapering dose of steroids. This should help to get rid of your pain. I would also like you to take a short course of NSAIDs (ibuprofen or Naprosyn) but do not exceed 3 days as these can cause damage to your kidneys if used in excess. I would suggest taking no more than 600 mg every 8 hours of ibuprofen also known as Motrin or Advil for the next 3 days. Prescriptions: Prednisone [Deltasone 5 mg Tablet] 5 mg PO ASDIR #36 tablet
[2019-11-30] MEDS ORDERED: KETOROLAC TROMETHAMINE 60 MG/2 ML SDV IM ONE (19:29)
[2019-11-30] MEDS ORDERED: PREDNISONE 20 MG TABLET PO ONE (19:29)
== END 2019-11-30 20:19 | disposition home or self-care (01) ==
LOC: ER 16:51
DX: L40.50 Arthropathic psoriasis, unspecified (principal); R21 Rash and other nonspecific skin eruption; I10 Essential (primary) hypertension; E78.5 Hyperlipidemia, unspecified; F17.200 Nicotine dependence, unspecified, uncomplicated
CPT/HCPCS: 99283; 96372; J1885; J7512